=== PATIENT | female | born 1955 | race Caucasian/White ===

== ENCOUNTER 2020-02-08 11:00 | Outpatient (RCR) | payer MEDICARE, SELFPAY | END 2020-02-08 13:17 | disposition home or self-care (01) | LOC: HO.PTCHIC 11:00 | PROVIDERS: PCP Internal Medicine | DX: Z47.1 Aftercare following joint replacement surgery (principal); Z96.652 Presence of left artificial knee joint | CPT/HCPCS: 97110; 97112 ==

== ENCOUNTER 2020-06-05 11:46 | Outpatient (REF) | payer MEDICARE, SELFPAY ==
[2020-06-05 14:15] LABS: Alanine Aminotransferase 25 U/L (0-31); Albumin Level 4.5 g/dL (3.5-5.0); Alkaline Phosphatase 99 U/L (39-117); Anion Gap 16 (12-20); Aspartate Amino Transferase 28 U/L (5-31); Bilirubin Direct 0.2 mg/dL (0.0-0.5); Bilirubin Total 0.6 mg/dL (0.0-1.0); Blood Urea Nitrogen 31 mg/dL (9-16); Calcium 9.8 mg/dL (8.4-10.2); Carbon Dioxide 29 mmol/L (22-29); Chloride 99 mmol/L (96-108); Estimated Glomerular Filt Rate 39; Glucose Random 109 mg/dL (60-115); Potassium 4.4 mmol/L (3.3-5.1); Sodium 140 mmol/L (135-145); Total Protein 7.5 g/dL (6.5-8.0)
== END 2020-06-05 11:47 | disposition home or self-care (01) ==
LOC: HO.HMGCLDS 11:46
PROVIDERS: PCP Internal Medicine; Visit Provider Internal Medicine
DX: B35.3 Tinea pedis (principal); E78.9 Disorder of lipoprotein metabolism, unspecified; F33.9 Major depressive disorder, recurrent, unspecified; I10 Essential (primary) hypertension; N32.9 Bladder disorder, unspecified; Z91.09 Other allergy status, other than to drugs and biological substances
CPT/HCPCS: 36415; 80048; 80076

== ENCOUNTER 2021-02-14 15:20 | Outpatient (REF) | payer MEDICARE, SELFPAY ==
--- NOTE | ~2021-02-14 | XR_ITS ---
EXAMINATION: XR RIBS, RIGHT CLINICAL INFORMATION: Chest pain. COMPARISON: Chest radiograph and left hemithoracic rib series done on 09/30/2006. TECHNIQUE: 3 views of the right ribs were obtained. FINDINGS: Lungs are clear. No consolidation, pneumothorax, or pleural effusion. The cardiomediastinal silhouette and pulmonary vasculature are normal. Note is made of presence of a small sliding hiatal hernia. Postsurgical changes are noted within the right axilla. Mild diffuse osteopenia. Osseous structures are unremarkable. Ribs are intact. No fractures are identified. XR/XR ribs RT min 3V w CXR1V IMPRESSION: No radiographic evidence of any displaced right hemithoracic rib fracture or hemopneumothorax or lung contusion is seen. Mild diffuse osteopenia. Postsurgical changes within the right axilla.
[2021-02-14 16:26] LABS: MANUAL DIFF FLAG NO
[2021-02-14 16:36] LABS: Basophils Percent Auto 0.4 % (0-2); Eosinophils Absolute Auto 0.1 X10*3/uL (0.0-0.4); Hematocrit 36.9 % (37-47); Imm Gran Abs Auto 0.04 X10*3/uL (0.00-0.03); Imm Gran Pct Auto 0.5 % (0.0-0.4); Lymphocytes Absolute Auto 1.9 X10*3/uL (1.2-4.9); Lymphocytes Percent Auto 23.6 % (20-40); Mean Corpuscular HGB Conc 32.5 g/dl (31.0-35.0); Mean Corpuscular Hemoglobin 32.9 pg (27.0-33.0); Mean Corpuscular Volume 101.1 fL (80-98); Mean Platelet Volume 10.9 fL (9.4-12.3); Monocytes Absolute Auto 0.7 X10*3/uL (0.1-1.2); Monocytes Percent Auto 8.3 % (2-11); Neutrophils Absolute Auto 5.3 X10*3/uL (2.0-8.3); Neutrophils Percent Auto 66.2 % (45-73); Platelet Count 333 X10*3/uL (160-400); Red Blood Count 3.65 X10*6/uL (4.20-5.50); Red Cell Distribution Width 13.9 % (11.0-16.0)
[2021-02-14 16:53] LABS: Alanine Aminotransferase 22 U/L (0-31); Albumin Level 4.2 g/dL (3.5-5.0); Alkaline Phosphatase 120 U/L (39-117); Anion Gap 15 (12-20); Aspartate Amino Transferase 29 U/L (5-31); Bilirubin Total 0.5 mg/dL (0.0-1.0); Blood Urea Nitrogen 14 mg/dL (9-16); Calcium 9.4 mg/dL (8.4-10.2); Carbon Dioxide 28 mmol/L (22-29); Chloride 103 mmol/L (96-108); Estimated Glomerular Filt Rate 32; Glucose Random 120 mg/dL (60-115); Potassium 4.2 mmol/L (3.3-5.1); Sodium 142 mmol/L (135-145)
== END 2021-02-14 15:21 | disposition home or self-care (01) ==
LOC: HO.HMGCLDS 15:20
PROVIDERS: PCP Internal Medicine; Visit Provider Internal Medicine
DX: R07.89 Other chest pain (principal); E78.9 Disorder of lipoprotein metabolism, unspecified; F33.9 Major depressive disorder, recurrent, unspecified; I10 Essential (primary) hypertension; K21.9 Gastro-esophageal reflux disease without esophagitis
CPT/HCPCS: 36415; 71101; 80053; 85025

== ENCOUNTER 2021-03-26 14:36 | Outpatient (REF) | payer MEDICARE, SELFPAY ==
[2021-03-26 16:34] LABS: Anion Gap 15 (12-20); Blood Urea Nitrogen 18 mg/dL (9-16); Carbon Dioxide 29 mmol/L (22-29); Chloride 102 mmol/L (96-108); Estimated Glomerular Filt Rate 40; Potassium 4.5 mmol/L (3.3-5.1); Sodium 141 mmol/L (135-145)
== END 2021-03-26 14:37 | disposition home or self-care (01) ==
LOC: HO.HMGCLDS 14:36
PROVIDERS: PCP Internal Medicine; Visit Provider Internal Medicine
DX: R74.8 Abnormal levels of other serum enzymes (principal)
CPT/HCPCS: 36415; 80051; 82565; 84520

== ENCOUNTER 2021-09-06 13:15 | Outpatient (REF) | payer MEDICARE, SELFPAY ==
[2021-09-06 14:27] LABS: Alanine Aminotransferase 25 U/L (0-31); Albumin Level 4.3 g/dL (3.5-5.0); Alkaline Phosphatase 109 U/L (39-117); Anion Gap 12 (12-20); Aspartate Amino Transferase 29 U/L (5-31); Bilirubin Total 0.6 mg/dL (0.0-1.0); Blood Urea Nitrogen 22 mg/dL (9-16); Calcium 9.8 mg/dL (8.4-10.2); Carbon Dioxide 27 mmol/L (22-29); Chloride 106 mmol/L (96-108); Cholesterol 234 mg/dL; Estimated Glomerular Filt Rate 43; Glucose Fasting 94 mg/dL (60-99); HDL Cholesterol 88 mg/dL; LDL Cholesterol Calculated 131 mg/dl; Potassium 4.4 mmol/L (3.3-5.1); Sodium 141 mmol/L (135-145); Total Protein 7.3 g/dL (6.5-8.0); Triglycerides 78 mg/dL
== END 2021-09-06 13:16 | disposition home or self-care (01) ==
LOC: HO.HMGCLDS 13:15
PROVIDERS: PCP Internal Medicine; Visit Provider Internal Medicine
DX: E78.9 Disorder of lipoprotein metabolism, unspecified (principal); I10 Essential (primary) hypertension
CPT/HCPCS: 36415; 80053; 80061

== ENCOUNTER 2022-03-22 12:32 | Outpatient (REF) | payer MEDICARE, SELFPAY ==
[2022-03-22 14:07] LABS: MANUAL DIFF FLAG NO
[2022-03-22 14:15] LABS: Basophils Percent Auto 0.4 % (0-2); Eosinophils Absolute Auto 0.1 X10*3/uL (0.0-0.4); Eosinophils Percent Auto 0.9 % (0-4); Hematocrit 41.3 % (37.0-47.0); Imm Gran Abs Auto 0.02 X10*3/uL (0.00-0.03); Imm Gran Pct Auto 0.3 % (0.0-0.4); Mean Corpuscular HGB Conc 33.9 g/dl (31.0-35.0); Mean Corpuscular Hemoglobin 32.7 pg (27.0-33.0); Mean Corpuscular Volume 96.5 fL (80.0-98.0); Mean Platelet Volume 10.2 fL (9.4-12.3); Monocytes Absolute Auto 0.5 X10*3/uL (0.1-1.2); Monocytes Percent Auto 7.7 % (2-11); Neutrophils Absolute Auto 4.2 x10*3/uL (2.0-8.3); Neutrophils Percent Auto 61.7 % (45-73); Platelet Count 343 X10*3/uL (160-400); Red Blood Count 4.28 X10*6/uL (4.20-5.50); Red Cell Distribution Width 13.4 % (11.0-16.0); White Blood Count 6.8 X10*3/uL (4.8-10.8)
[2022-03-22 14:45] LABS: Alanine Aminotransferase 24 U/L (0-31); Albumin Level 4.5 g/dL (3.5-5.0); Alkaline Phosphatase 97 U/L (39-117); Anion Gap 13 (12-20); Aspartate Amino Transferase 33 U/L (5-31); Bilirubin Total 0.5 mg/dL (0.0-1.0); Blood Urea Nitrogen 27 mg/dL (9-16); Calcium 9.9 mg/dL (8.4-10.2); Carbon Dioxide 29 mmol/L (22-29); Chloride 99 mmol/L (96-108); Estimated Glomerular Filt Rate 47; Glucose Random 107 mg/dL (60-115); Potassium 4.6 mmol/L (3.3-5.1); Sodium 136 mmol/L (135-145); Total Protein 7.4 g/dL (6.5-8.0)
[2022-03-23 18:53] LABS: LDL Cholesterol Direct 161 mg/dL (<100)
== END 2022-03-22 12:33 | disposition home or self-care (01) ==
LOC: HO.HMGCLDS 12:32
PROVIDERS: PCP Internal Medicine; Visit Provider Internal Medicine
DX: I10 Essential (primary) hypertension (principal); K21.9 Gastro-esophageal reflux disease without esophagitis; E78.9 Disorder of lipoprotein metabolism, unspecified; F33.41 Major depressive disorder, recurrent, in partial remission; N32.9 Bladder disorder, unspecified; Z91.09 Other allergy status, other than to drugs and biological substances
CPT/HCPCS: 36415; 80053; 83721; 85025

== ENCOUNTER 2022-12-02 13:24 | Outpatient (REF) | payer MEDICARE, SELFPAY ==
[2022-12-02 16:14] LABS: MANUAL DIFF FLAG NO
[2022-12-02 16:15] LABS: Basophils Percent Auto 0.6 % (0-2); Eosinophils Absolute Auto 0.1 X10*3/uL (0.0-0.4); Hematocrit 41.1 % (37.0-47.0); Hemoglobin 13.9 g/dl (12.0-16.0); Imm Gran Abs Auto 0.02 X10*3/uL (0.00-0.03); Imm Gran Pct Auto 0.3 % (0.0-0.4); Lymphocytes Absolute Auto 2.7 X10*3/uL (1.2-4.9); Lymphocytes Percent Auto 37.2 % (20-40); Mean Corpuscular HGB Conc 33.8 g/dl (31.0-35.0); Mean Corpuscular Hemoglobin 32.3 pg (27.0-33.0); Mean Corpuscular Volume 95.6 fL (80.0-98.0); Mean Platelet Volume 10.3 fL (9.4-12.3); Monocytes Absolute Auto 0.6 X10*3/uL (0.1-1.2); Monocytes Percent Auto 8.4 % (2-11); Neutrophils Absolute Auto 3.8 x10*3/uL (2.0-8.3); Neutrophils Percent Auto 52.5 % (45-73); Platelet Count 344 X10*3/uL (160-400); Red Cell Distribution Width 13.9 % (11.0-16.0); White Blood Count 7.2 X10*3/uL (4.8-10.8)
[2022-12-03 01:45] LABS: Alanine Aminotransferase 20 U/L (0-31); Albumin Level 4.3 g/dL (3.5-5.0); Alkaline Phosphatase 108 U/L (39-117); Anion Gap 14 (12-20); Aspartate Amino Transferase 28 U/L (5-31); Bilirubin Total 0.4 mg/dL (0.0-1.0); Blood Urea Nitrogen 14 mg/dL (9-16); Calcium 9.6 mg/dL (8.4-10.2); Carbon Dioxide 27 mmol/L (22-29); Chloride 106 mmol/L (96-108); Cholesterol 241 mg/dL; Estimated Glomerular Filt Rate 46; Glucose Fasting 97 mg/dL (60-99); HDL Cholesterol 83 mg/dL; LDL Cholesterol Calculated 134 mg/dl; Potassium 3.9 mmol/L (3.3-5.1); Sodium 143 mmol/L (135-145); Total Protein 7.6 g/dL (6.5-8.0); Triglycerides 122 mg/dL
== END 2022-12-02 13:25 | disposition home or self-care (01) ==
LOC: HO.HMGCLDS 13:24
PROVIDERS: PCP Internal Medicine; Visit Provider Internal Medicine
DX: E78.9 Disorder of lipoprotein metabolism, unspecified (principal); F33.9 Major depressive disorder, recurrent, unspecified; I10 Essential (primary) hypertension; K21.9 Gastro-esophageal reflux disease without esophagitis; N32.9 Bladder disorder, unspecified; Z91.09 Other allergy status, other than to drugs and biological substances
CPT/HCPCS: 36415; 80053; 80061; 85025

== ENCOUNTER 2022-12-10 12:59 | Outpatient (AMB) | payer BC, SELFPAY ==
[2022-12-10 13:02] VITALS: BP 126/74; PULSE 81; O2SAT 96; BMI 29.6
--- NOTE | 2022-12-10 13:02 | MHC.PC.OV ---
Vital Signs 12/10/22 13:02 Height 5 ft 2 in Weight 162 lb BMI 29.6 BP 126/74 Blood Pressure Location Lt brachial Position Sitting Pulse 81 Pulse Source Pulse Oximeter Pulse Oximetry (%) 96 Oxygen Delivery Method Room Air Intake Visit Reasons: 4m follow up Intake Note: Pt is here today for 4 months follow up visit. Allergies Sulfa (Sulfonamide Antibiotics) [Sulfa (Sulfonamides)] Allergy (Mild, Verified 12/10/22 13:04) FLUSHING/RASH lisinopril Adverse Reaction (Unknown, Verified 12/10/22 13:04) cough Tobacco use date assessed: 12/10/22 Fall risk assessment: 1 Fall in past year Last assessed Fall Risk: 12/10/22 Dental Screening Dental Screen Date: 12/10/22 Did you have a dental visit in the last 12 months?: No Did you have a dental problem in the last 6 months where you did not have access to dental care?: No Was dental information given to patient?: Patient declined HPI 4m follow up HPI Details Patient is 67-year-old female came in today for her regular follow-up visit Patient tripped and fell at home 1 month ago on her right shoulder Since then right shoulder has been painful and she is having difficulty lifting it. I have ordered x-ray of her shoulder she will be seeing orthopedic for further evaluation. Patient is taking Tylenol which is helping her she is also using local ice which helps Labs done recently reviewed with the patient Hypertension: Patient is taking amlodipine 10 mg, atenolol 100 mg blood pressure is well controlled today patient is tolerating medication no side effects Lipid disorder: Continue simvastatin 5 mg patient is tolerating medication Patient is on oxybutynin 10 mg daily for hyperactive bladder she is doing well tolerating medication Allergies are stable with Zyrtec and Flonase nasal spray. Dyspepsia stable with pantoprazole refill sent. Depression: Continue Wellbutrin refill sent Patient has seen [facility] vascular Dr. Anastasiia Carvalho had procedure done for varicosities and is doing very well Patient have an appointment in March [facility] Medical History Bladder disorder Chronic GERD Depression, major, recurrent Environmental allergies History of breast cancer Hypertension, essential Lipid disorder Osteoarthritis of knees, bilateral Vitamin D deficiency Surgical History No pertinent past surgical history Social History Housing: House Patient Tobacco Use Status: Former Tobacco user Quit Date: 2019 Tobacco use type: Cigarette Years Smoked: 50 years e-Cigarette/Vaping Use: Never Used Current occupational status: retired Cognitive needs: No Hearing needs: No Vision needs: Yes Questionnaire PHQ-9 Over the last 2 weeks, how often have you been bothered by any of the following problems? 1. Little interest or pleasure in doing things: not at all 2. Feeling down, depressed, or hopeless: not at all 3. Trouble falling or staying asleep, or sleeping too much: several days 4. Feeling tired or having little energy: more than half the days 5. Poor appetite or overeating: several days 6. Feeling bad about yourself - or that you are a failure or have let yourself or your family down: not at all 7. Trouble concentrating on things, such as reading the newspaper or watching television: several days 8. Moving or speaking so slowly that other people could have noticed. Or the opposite - being so fidgety or restless that you have been moving around a lot more than usual: not at all 9. Thoughts that you would be better off or of hurting yourself in some way: not at all Total score: 5 Depression Screening Interpretation: Negative 71396 - PHQ-9 Billing: Yes Source: Developed by Drs. Kristofer Christopher, Yoko Ricci, Kanu Cummins and colleagues, with an educational wes from [employer]. Thrive Questionnaire Date Thrive assessed: 12/10/22 I am a: Patient What is your living situation today?: I have a steady place to live Within the past 12 months, did the food you bought not last and you didn't have the money to get more?: Never true Within the past 12 months, did you worry whether your food would run out before you got money to buy more?: Never true Do you have trouble paying for medicines?: No Do you have trouble getting transportation to medical appointments?: No Do you have trouble paying your heating and electricity bill?: No Do you have trouble taking care of your child, family member or friend?: No Do you have trouble with day-to-day activities such as bathing, preparing meals, shopping, managing finances, etc.?: No Are you currently unemployed and looking for a job?: No Are you interested in more education?: No MAUREEN-7 AMB Questionnaire MAUREEN-7 Date MAUREEN - 7 assessed: 12/10/22 Feeling nervous, anxious, or on edge: 1 = Several days Not being able to stop or control worryin = Several days Worrying too much about different things: 1 = Several days Trouble relaxin = More than half the days Being so restless that it is hard to sit still: 2 = More than half the days Becoming easily annoyed or irritable: 2 = More than half the days Feeling afraid as if something awful might happen: 0 = Not at all Total MAUREEN-7 score (0-4 normal; 5-9 mild; 10-14 moderate; 15-21 severe): 9 Source: Developed by Drs. Kristofer Christopher, Yoko Ricci, Kanu Cummins and colleagues, with an educational wes from [employer]. MAUREEN-7 Assessment Billing MAUREEN-7 Assessment Tool: MAUREEN-7 Assessment 77414 Review of Systems Const Denies chills and Denies fever(s) ENT Denies epistaxis and Denies nasal discharge Card Denies chest pain Resp Denies chest congestion, Denies cough and Denies hemoptysis GI Denies diarrhea and Denies nausea Skin/Breast Denies rash Neuro Reports no additional complaints Psych Reports no additional complaints Endo Reports no additional complaints Physical exam (Primary Care) Vital Signs: Last Vital Signs Pulse 81 12/10/22 13:02 BP 126/74 12/10/22 13:02 Pulse Ox 96 12/10/22 13:02 Oxygen Delivery Method Room Air 12/10/22 13:02 BMI result Body Mass Index 29.6 Tobacco/Smoking Status: Tobacco use Status Tobacco use date assessed 12/10/22 12/10/22 13:06 Patient Tobacco Use Status Former Tobacco user 12/10/22 13:06 Tobacco use type Cigarette 12/10/22 13:06 e-Cigarette/Vaping Use Never Used 12/10/22 13:06 PHQ-9: PHQ-9 Score PHQ-9: Total score 5 12/10/22 13:56 Depression Screening Interpretation: Negative Thrive Assessment: Date of Thrive Assessment Date Thrive assessed 12/10/22 12/10/22 13:56 Const General: cooperative, comfortable and no acute distress Orientation/consciousness: patient oriented x3 HENMT Head: Yes normocephalic Eyes General: appearance normal, both eyes and all related structures Neck Neck: Yes supple Resp Effort & Inspection: normal respiratory effort, no cough and no stridor Cardio Rhythm: regular rhythm Heart sounds: S1 normal heart sound present and S2 normal heart sound present Skin General skin exam: turgor normal Neuro General: patient oriented x3, tone normal and moves all extremities Extrem Shoulder/upper arm images: 1. Tender to palpation over rotator cuff, range of motion limited to 30 degrees only. Right lower extremity: no edema Left lower extremity: no edema Assessment and Plan Assessment & Plan (1) Right shoulder injury: Code(s): S49.91XA - Unspecified injury of right shoulder and upper arm, initial encounter (2) Fall: Code(s): W19.XXXA - Unspecified fall, initial encounter (3) Shoulder pain, right: Code(s): M25.511 - Pain in right shoulder (4) Chronic GERD: Code(s): K21.9 - Gastro-esophageal reflux disease without esophagitis (5) Depression, major, recurrent: Code(s): F33.9 - Major depressive disorder, recurrent, unspecified Qualifiers: Active/Remission status: in partial remission Qualified Code(s): F33.41 - Major depressive disorder, recurrent, in partial remission (6) Bladder disorder: Code(s): N32.9 - Bladder disorder, unspecified (7) Hypertension, essential: Code(s): I10 - Essential (primary) hypertension (8) Environmental allergies: Code(s): Z91.09 - Other allergy status, other than to drugs and biological substances (9) Lipid disorder: Code(s): E78.9 - Disorder of lipoprotein metabolism, unspecified Plan Patient is 67-year-old female came in today for her regular follow-up visit Patient tripped and fell at home 1 month ago on her right shoulder Since then right shoulder has been painful and she is having difficulty lifting it. I have ordered x-ray of her shoulder she will be seeing orthopedic for further evaluation. Patient is taking Tylenol which is helping her she is also using local ice which helps Labs done recently reviewed with the patient Hypertension: Patient is taking amlodipine 10 mg, atenolol 100 mg blood pressure is well controlled today patient is tolerating medication no side effects Lipid disorder: Continue simvastatin 5 mg patient is tolerating medication Patient is on oxybutynin 10 mg daily for hyperactive bladder she is doing well tolerating medication Allergies are stable with Zyrtec and Flonase nasal spray. Dyspepsia stable with pantoprazole refill sent. Depression: Continue Wellbutrin refill sent Patient has seen [facility] vascular Dr. Anastasiia Carvalho had procedure done for varicosities and is doing very well Patient have an appointment in March Orders: Orders XR shoulder RT min 2V Today M25.511 - Pain in right shoulder, S49.91XA - Unspecified injury of right shoulder and upper arm, initial encounter, W19.XXXA - Unspecified fall, initial encounter Referrals Orthopedics Referral M25.511 - Pain in right shoulder, S49.91XA - Unspecified injury of right shoulder and upper arm, initial encounter, W19.XXXA - Unspecified fall, initial encounter Coding Level of Care Code Est Pt Level 4 (89800) Diagnoses Right shoulder injury S49.91XA Fall W19.XXXA Shoulder pain, right M25.511 Chronic GERD K21.9 Depression, major, recurrent F33.41 Active/Remission status: in partial remission Bladder disorder N32.9 Hypertension, essential I10 Environmental allergies Z91.09 Lipid disorder E78.9 Additional Codes MAUREEN-7 Assessment Billing - MAUREEN-7 Assessment Tool: MAUREEN-7 Assessment [id number] ([id number])
== END 2022-12-10 14:19 | disposition home or self-care (01) ==
PROVIDERS: PCP Internal Medicine; Visit Provider Internal Medicine
DX: S49.91XA Unspecified injury of right shoulder and upper arm, initial encounter (principal); W19.XXXA Unspecified fall, initial encounter; K21.9 Gastro-esophageal reflux disease without esophagitis; F33.41 Major depressive disorder, recurrent, in partial remission; I10 Essential (primary) hypertension; Z91.09 Other allergy status, other than to drugs and biological substances; M25.511 Pain in right shoulder; N32.9 Bladder disorder, unspecified; E78.9 Disorder of lipoprotein metabolism, unspecified
CPT/HCPCS: 99214

== ENCOUNTER 2022-12-10 13:28 | Outpatient (REF) | payer MEDICARE, SELFPAY ==
--- NOTE | ~2022-12-10 | XR_ITS ---
EXAMINATION: XR SHOULDER, RIGHT CLINICAL INFORMATION: Unspecified injury of right shoulder and upper arm. COMPARISON: None available. TECHNIQUE: AP external rotation, Grashey, scapular Y, and axillary views of the right shoulder. FINDINGS: The bony structures are heterogeneous/osteopenic. There is a mildly displaced obliquely oriented fracture through the greater tuberosity. There is no dislocation. Soft tissues are unremarkable XR/XR shoulder RT min 2V IMPRESSION: Mildly displaced fracture through the greater tuberosity..
== END 2022-12-10 13:29 | disposition home or self-care (01) ==
LOC: HO.HMGCX 13:28
PROVIDERS: PCP Internal Medicine; Visit Provider Internal Medicine
DX: S49.91XA Unspecified injury of right shoulder and upper arm, initial encounter (principal); M25.511 Pain in right shoulder; W19.XXXA Unspecified fall, initial encounter; Y93.9 Activity, unspecified; Y92.9 Unspecified place or not applicable; Y99.9 Unspecified external cause status
CPT/HCPCS: 73030

== ENCOUNTER 2022-12-16 05:32 | Outpatient (REF) | payer MEDICARE, SELFPAY | END 2022-12-16 05:33 | disposition home or self-care (01) | LOC: HO.HOSX 05:32 | PROVIDERS: Visit Provider Physician Assistant | DX: S42.251A Displaced fracture of greater tuberosity of right humerus, initial encounter for closed fracture (principal) | CPT/HCPCS: 99202 ==

== ENCOUNTER 2022-12-16 14:27 | Outpatient (AMB) | payer BC, SELFPAY ==
[2022-12-16 14:41] VITALS: BMI 29.6
--- NOTE | 2022-12-16 14:41 | A.OFFVIS_ITS ---
Intake Vital Signs 12/16/22 14:41 Height 5 ft 2 in Weight 162 lb BMI 29.6 Intake Visit Reasons: FC- Mildly displaced fx greater tuberosity Intake Note: Right hand dominant female presents today for a new patient visit for an evaluation of her right arm. States approx 6 weeks ago she triped over a carpet in the middle of the night. States she landed on her right side. Report she felt instant pain. She thought her pain would get better but worsen instead. Seen at an urgent care 6 days ago where xrays and was placed in a sling. Currently she Monique numbness or tingling just increase pain with arm movement. Allergies Sulfa (Sulfonamide Antibiotics) [Sulfa (Sulfonamides)] Allergy (Mild, Verified 12/16/22 14:45) FLUSHING/RASH lisinopril Adverse Reaction (Unknown, Verified 12/16/22 14:45) cough HPI FC- Mildly displaced fx greater tuberosity HPI Details 67-year-old right hand dominant female who presents in the office today, as a new patient, for an evaluation of right shoulder pain. The patient was seen by Urgent Care on 12/10/2022 due to limited ROM of the right shoulder accompanied by pain status post a fall which occurred in end of 09/2022 after she tripped over her carpet in the middle of the night and hit a bunk bed. She was placed in a sling. She thought it was getting better but states the pain is getting worse. She denies numbness or tingling. Patient refused repeat x-rays while in the office today. 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 No ecchymosis, erythema, or edema. Forward flexion and abduction to 45 degrees. NVI. Office Procedures Fracture Care Fracture Billing Code: Fracture Billing Code Assessment & Plan Assessment & Plan (1) Fracture of greater tuberosity of right humerus: Code(s): S42.251A - Displaced fracture of greater tuberosity of right humerus, initial encounter for closed fracture Plan Ms. Scherer is a 67-year-old right hand dominant female who presents in the office today, as a new patient, for an evaluation of right shoulder pain. The patient was seen by Urgent Care on 12/10/2022 due to limited ROM of the right shoulder accompanied by pain status post a fall which occurred in end of 09/2022 after she tripped over her carpet in the middle of the night and hit a bunk bed. She was placed in a sling. She thought it was getting better but states the pain is getting worse. She denies numbness or tingling. Patient refused repeat x-rays while in the office today. I educated which motions for her avoid performing with the right shoulder until she has progressed with healing. I discussed the role of formal physical therapy to work on gentle ROM of the right shoulder. She has agreed to attend at this time. I discussed her returning in 4-6 weeks and she has requested 6 weeks. Follow up will be in 6 weeks with repeat x-rays, or sooner if needed. X-rays of the right shoulder, obtained on 12/10/2022, revealed: Mildly displaced fracture through the greater tuberosity. Orders: Orders XR shoulder RT min 2V 12/16/22 M25.519 - Pain in unspecified shoulder PT Evaluation and Treatment Today S42.251A - Displaced fracture of greater tuberosity of right humerus, initial encounter for closed fracture Patient Instructions: Scribed for Joslyn Malloy PA-C by [facility] or medical, on 12/16/2022 at 2:30 pm, EST. Coding Level of Care Code New Pt Level 4 (33803) Diagnoses Fracture of greater tuberosity of right humerus S42.251A CPT Codes Fracture Care - Fracture Billing Code: Fracture Billing Code ([id number])
== END 2022-12-16 15:18 | disposition home or self-care (01) ==
PROVIDERS: PCP Internal Medicine; Visit Provider Physician Assistant
DX: S42.251A Displaced fracture of greater tuberosity of right humerus, initial encounter for closed fracture (principal)
CPT/HCPCS: 99204

== ENCOUNTER 2023-01-13 13:00 | Outpatient (RCR) | payer MEDICARE, SELFPAY ==
--- NOTE | 2022-12-20 09:37 | MHC.PT.EP ---
[facility] [place] Office [place] Office [place] Office [address] Jeffy Blanco [address] [phone] F: [phone] F: [phone] F: [phone] F: [phone] Physical Therapy Plan of Care Date of Evaluation: Date of Surgery: Diagnosis: This is a 67 yo female presenting to skilled PT with a script for fracture of greater tuberosity of R humerus. Assessment: This is a 67 yo female presenting to skilled PT with a script for fracture of greater tuberosity of R humerus. Patient reports a fall about a month ago when she accidently caught her foot and fell into her bed. She went to her PCP last week and had an x-ray, XR/XR shoulder RT min 2V IMPRESSION: Mildly displaced fracture through the greater tuberosity. She has also seen [facility] ortho who referred her to PT and provided a sling (no longer wearing this, follows up with them in 6wks). Her pain today is located GHJ into mid humerus, described as achy and sharp (denies numbness or tingling). Pain increases with typing, UB and LB ADLs, housework/dishes. Assessment reveals pain that ranges from up to a 6/10 at the worst. Patient demos decreased shoulder, elbow and cervical ROM, strength of shoulder and elbow, TTP at shoulder and elbow joint lines and surrounding soft tissues and impaired posture with forward head, increased thoracic kyphosis and rounded shoulders. Based on functional limitations, impaired QOL and pain tolerance patient is a good candidate for skilled PT 2x/wk for 6 wks. Frequency and Duration: The patient will be seen 2x/wk for 6wks Short Term Goals: (in 2 wks) Demo I with HEP Improve shoulder AROM by at least 10 degs Demo proper scapular recruitment with appropriate shoulder strengthening exercises when ready and pain free Certified Adapted Physical Educator Goals: (in 6 wks) Improve shoulder nonpainful AROM to almost near equal B Demo at least 1 grade improvement in MMT for shoulder Improve SPADI by at least 10 points Improve overall functional QOL by at least 50% Treatment Plan: Modalities to reduce pain, spasms and effusion. Manual therapy to restore motion and function. Therapeutic exercise to improve strength and flexibility. Neuromuscular re-education for posture and balance. Therapeutic activities to return to functional activities of daily living. Electronically signed by: Nano Madrigal PT Please sign and return to therapist. Thank you for your referral.
--- NOTE | 2023-02-12 09:25 | MHC.PT.DC ---
[facility] [place] Office [place] [facility] [place] Office [address] Jeffy Blanco [address] [phone] F: [phone] F: [phone] F: [phone] F: [phone] Physical Therapy Discharge Report Diagnosis: This is a 67 yo female presenting to skilled PT with a script for fracture of greater tuberosity of R humerus. Date of Surgery: Date of Evaluation: 12/20/22 Date of Discharge: 02/12/23 Treatments to Date: 2 Cancellations to Date: 0 No Shows to Date: 0 Discharge Status: Achieved Goals Improved Function Independent with HEP Patient Elected to Stop Discharge Summary: Patient is doing well on her own. Ready to progress her HEP and feels like she can continue on her own. Added in band strengthening and functional movements with arm. She demos improved ROM, pain and functional use since eval. I kept her chart open and DC'd after 30 days. She did not call for further assistance. Electronically signed by: Nano Madrigal PT Please sign and return to therapist. Thank you for your referral.
== END 2023-02-12 09:26 | disposition home or self-care (01) ==
LOC: HO.PTCHIC 13:00
PROVIDERS: PCP Internal Medicine; Visit Provider Physician Assistant
DX: S42.251D Displaced fracture of greater tuberosity of right humerus, subsequent encounter for fracture with routine healing (principal)
CPT/HCPCS: 97110; 97162

== ENCOUNTER 2023-01-24 07:59 | Outpatient (REF) | payer MEDICARE, SELFPAY | END 2023-01-24 08:00 | disposition home or self-care (01) | LOC: HO.HOSX 07:59 | PROVIDERS: Visit Provider Physician Assistant | DX: Z13.89 Encounter for screening for other disorder (principal) ==

== ENCOUNTER 2023-03-26 12:58 | Outpatient (AMB) | payer MEDICARE, SELFPAY ==
--- NOTE | 2023-03-26 12:59 | A.OFFPC_ITS ---
Vital Signs 3 03/26/23 13:01 Height 5 ft 2 in Weight 163 lb BMI 29.8 BP 120/70 Blood Pressure Location Rt brachial Position Sitting Pulse 74 Pulse Source Pulse Oximeter Pulse Oximetry (%) 98 Oxygen Delivery Method Room Air Intake Visit Reasons: Annual PE Allergies Sulfa (Sulfonamide Antibiotics) [Sulfa (Sulfonamides)] Allergy (Mild, Verified 03/26/23 13:00) FLUSHING/RASH lisinopril Adverse Reaction (Unknown, Verified 03/26/23 13:00) cough Medication List - Last Reconciled 03/26/23 by Cyndi Vera MD adjuvant AS01B (PF)vial 1 of 2 (Shingrix Adjuvant Component (PF) intramuscular suspension) 5 mL IM .qd 30 days amlodipine 10 mg PO DAILY 90 days atenolol 100 mg PO DAILY 90 days bupropion HCl (Wellbutrin XL) 300 mg PO QAM 90 days cetirizine (Zyrtec) 10 mg PO ONCE 90 days fluticasone propionate 50 mcg/actuation 1 spray intranasal DAILY 30 days ketoconazole 2% 1 appl topical DAILY 3 days oxybutynin chloride ER 10 mg PO DAILY 90 days pantoprazole 40 mg PO DAILY 90 days pneumoc 13-giselle conj-dip cr(PF) (Prevnar 13 (PF)) 0.5 mL IM ONCE 30 days simvastatin 5 mg PO BEDTIME 90 days Tobacco use date assessed: 03/26/23 Fall risk assessment: No Falls in past year Last assessed Fall Risk: 03/26/23 Dental Screening Dental Screen Date: 03/26/23 Did you have a dental visit in the last 12 months?: No Did you have a dental problem in the last 6 months where you did not have access to dental care?: No Was dental information given to patient?: Patient declined HPI Annual PE 2 HPI0 Details Patient is 67-year-old female came in today for physical examination Patient had colonoscopy July of last year at [facility] She has OBGYN, patient says that she will call and book appointment herself for breast exam and Pap smear She will also get order for mammogram and bone density through them Medication list reviewed Lab order placed to be done before next visit in 4 months Three weeks ago patient had developed rash left side lower rib area which she has been treating herself with local ointment It seems as if this is a shingles rash which is healing now On examination patient has limited range of motion in her right shoulder, unable to lift above head which is a chronic problem started after the injury REPLACED BY [facility] Medical History Osteoarthritis of knees, bilateral Bladder disorder Depression, major, recurrent Lipid disorder Vitamin D deficiency Environmental allergies History of breast cancer Hypertension, essential Chronic GERD Surgical History No pertinent past surgical history Social History Housing: House Patient Tobacco Use Status: Former Tobacco user Quit Date: 2019 Tobacco use type: Cigarette Years Smoked: 50 years e-Cigarette/Vaping Use: Never Used Current occupational status: retired 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 How often do you have a drink containing alcohol?: Monthly or less 2. How many drinks containing alcohol do you have on a typical day when you are drinking?: 1 or 2 3. How often do you have six or more drinks on one occasion?: Never Total Score: 1 MAUREEN-7 AMB Questionnaire MAUREEN-7 Date MAUREEN - 7 assessed: 12/10/22 Source: Developed by Drs. Kristofer Christopher, Yoko Ricci, Kanu Cummins and colleagues, with an educational wes from [employer]. Review of Systems Const Denies chills, Denies fever(s) and Denies headache(s) Eyes Denies blurry vision ENT Denies headache(s), Denies nasal discharge, Denies nasal obstruction, Denies odynophagia and Denies sinus pain Card Denies chest pain at rest and Denies chest pain with activity Resp Denies cough and Denies hemoptysis GI Denies diarrhea, Denies odynophagia, Denies vomiting and Denies hematemesis Reports as per HPI Musc Denies abnormal gait Skin/Breast Reports as per HPI Neuro Denies Neuro-related abnormal movements, Denies Abnormal speech present, Denies abnormal gait, Denies headache(s) and Denies Sensory deficit (Neuro) Psych Denies mood swings and Denies paranoia Endo Reports as per HPI Smith/Lymph Reports as per HPI Aller/Immun Reports as per HPI Physical exam (Primary Care) Vital Signs: Last Vital Signs Pulse 74 03/26/23 13:01 BP 120/70 03/26/23 13:01 Pulse Ox 98 03/26/23 13:01 Oxygen Delivery Method Room Air 03/26/23 13:01 BMI result Body Mass Index 29.8 Tobacco/Smoking Status: Tobacco use Status Tobacco use date assessed 03/26/23 03/26/23 13:02 Patient Tobacco Use Status Former Tobacco user 03/26/23 13:02 Tobacco use type Cigarette 03/26/23 13:02 e-Cigarette/Vaping Use Never Used 03/26/23 13:02 Thrive Assessment: Date of Thrive Assessment Date Thrive assessed 12/10/22 03/26/23 13:02 Const General: cooperative, comfortable and no acute distress Orientation/consciousness: patient oriented x3 HENMT Head: Yes normocephalic and Yes atraumatic Eyes General: appearance normal, both eyes and all related structures Pupils: Equal, round and reactive pupils present EOM: EOMs intact bilaterally Neck Neck: Yes supple and No lymphadenopathy Thyroid: Thyroid normal Lymphatic: no lymphadenopathy noted Chest Chest/axillae images: 2 1. Papular erythematous rash healing Resp Effort & Inspection: normal respiratory effort and able to speak in complete sentences Auscultation: clear to auscultation bilaterally Cardio Heart sounds: S1 normal heart sound present and S2 normal heart sound present GI Palpation (GI): Soft to palpation and nontender Auscultation: normal bowel sounds General: Yes no CVA tenderness Back/Spine/Pelvis Back: no CVA tenderness Skin General skin exam: elasticity normal and turgor normal Neuro General: patient oriented x3 and gait normal Cranial nerves: Yes Equal, round and reactive pupils present Speech: No Abnormal speech present Sensory Exam: No Sensory deficit (Neuro) Coordination: tandem gait normal and Romberg test negative Extrem General: Yes normal exam except as noted and No edema Assessment and Plan Assessment & Plan (1) Encounter for general adult medical examination with abnormal findings: Code(s): Z00.01 - Encounter for general adult medical examination with abnormal findings (2) Shoulder pain, right: Code(s): M25.511 - Pain in right shoulder Qualifiers: Chronicity: chronic Qualified Code(s): M25.511 - Pain in right shoulder; G89.29 - Other chronic pain (3) Depression, major, recurrent: Code(s): F33.9 - Major depressive disorder, recurrent, unspecified Qualifiers: Active/Remission status: in full remission Qualified Code(s): F33.42 - Major depressive disorder, recurrent, in full remission (4) Lipid disorder: Code(s): E78.9 - Disorder of lipoprotein metabolism, unspecified (5) Environmental allergies: Code(s): Z91.09 - Other allergy status, other than to drugs and biological substances (6) Hypertension, essential: Code(s): I10 - Essential (primary) hypertension (7) Chronic GERD: Code(s): K21.9 - Gastro-esophageal reflux disease without esophagitis (8) Herpes zoster: Code(s): B02.9 - Zoster without complications Qualifiers: Herpes zoster complications: without complications Qualified Code(s): B 02.9 - Zoster without complications Plan Patient is 67-year-old female came in today for physical examination Patient had colonoscopy July of last year at [facility] She has OBGYN, patient says that she will call and book appointment herself for breast exam and Pap smear She will also get order for mammogram and bone density through them Medication list reviewed Lab order placed to be done before next visit in 4 months Three weeks ago patient had developed rash left side lower rib area which she has been treating herself with local ointment It seems as if this is a shingles rash which is healing now Orders: Orders 2 Complete Blood Count Auto Diff 3 Months E78.9 - Disorder of lipoprotein metabolism, unspecified, I10 - Essential (primary) hypertension, Z91.09 - Other allergy status, other than to drugs and biological substances Comprehensive [place]. Panel Fast 3 Months E78.9 - Disorder of lipoprotein metabolism, unspecified, I10 - Essential (primary) hypertension, Z91.09 - Other allergy status, other than to drugs and biological substances Lipid Panel 3 Months E78.9 - Disorder of lipoprotein metabolism, unspecified, I10 - Essential (primary) hypertension, Z91.09 - Other allergy status, other than to drugs and biological substances Coding Level of Care Code Est Pt Prev Care >65y(79150) Diagnoses Encounter for general adult medical examination with abnormal findings Z00.01 Chronic right shoulder pain M25.511; G89.29 Chronicity: chronic Recurrent major depressive disorder, in full remission F33.42 Active/Remission status: in full remission Lipid disorder E78.9 Environmental allergies Z91.09 Hypertension, essential I10 Chronic GERD K21.9 Herpes zoster without complication B02.9 Herpes zoster complications: without complications
[2023-03-26 13:01] VITALS: BP 120/70; PULSE 74; O2SAT 98; BMI 29.8
== END 2023-03-26 13:25 | disposition home or self-care (01) ==
PROVIDERS: PCP Internal Medicine; Visit Provider Internal Medicine
DX: Z00.00 Encounter for general adult medical examination without abnormal findings (principal); F33.42 Major depressive disorder, recurrent, in full remission; M25.511 Pain in right shoulder; G89.29 Other chronic pain; E78.9 Disorder of lipoprotein metabolism, unspecified; Z91.09 Other allergy status, other than to drugs and biological substances; I10 Essential (primary) hypertension; K21.9 Gastro-esophageal reflux disease without esophagitis; B02.9 Zoster without complications
CPT/HCPCS: 99397

== ENCOUNTER 2023-07-23 11:03 | Outpatient (REF) | payer MEDICARE, SELFPAY ==
[2023-07-23 13:29] LABS: MANUAL DIFF FLAG NO
[2023-07-23 13:41] LABS: Basophils Percent Auto 0.6 % (0-2); Eosinophils Absolute Auto 0.1 X10*3/uL (0.0-0.4); Eosinophils Percent Auto 1.6 % (0-4); Hematocrit 41.8 % (37.0-47.0); Hemoglobin 13.6 g/dl (12.0-16.0); Imm Gran Abs Auto 0.02 X10*3/uL (0.00-0.03); Imm Gran Pct Auto 0.3 % (0.0-0.4); Lymphocytes Absolute Auto 1.7 X10*3/uL (1.2-4.9); Lymphocytes Percent Auto 27.4 % (20-40); Mean Corpuscular HGB Conc 32.5 g/dl (31.0-35.0); Mean Corpuscular Hemoglobin 31.9 pg (27.0-33.0); Mean Corpuscular Volume 97.9 fL (80.0-98.0); Mean Platelet Volume 10.3 fL (9.4-12.3); Monocytes Absolute Auto 0.5 X10*3/uL (0.1-1.2); Monocytes Percent Auto 7.8 % (2-11); Neutrophils Absolute Auto 3.9 x10*3/uL (2.0-8.3); Neutrophils Percent Auto 62.3 % (45-73); Platelet Count 334 X10*3/uL (160-400); Red Blood Count 4.27 X10*6/uL (4.20-5.50); Red Cell Distribution Width 13.7 % (11.0-16.0); White Blood Count 6.3 X10*3/uL (4.8-10.8)
[2023-07-23 14:16] LABS: Alanine Aminotransferase 24 U/L (0-31); Albumin Level 4.3 g/dL (3.5-5.0); Alkaline Phosphatase 114 U/L (39-117); Anion Gap 14 (12-20); Aspartate Amino Transferase 31 U/L (5-31); Bilirubin Total 0.5 mg/dL (0.0-1.0); Blood Urea Nitrogen 21 mg/dL (9-16); Calcium 9.8 mg/dL (8.4-10.2); Carbon Dioxide 29 mmol/L (22-29); Chloride 103 mmol/L (96-108); Cholesterol 250 mg/dL (<200); Estimated Glomerular Filt Rate 49; Glucose Fasting 94 mg/dL (60-99); HDL Cholesterol 93 mg/dL (>40); LDL Cholesterol Calculated 124 mg/dL (<100); Potassium 4.4 mmol/L (3.3-5.1); Sodium 142 mmol/L (135-145); Total Protein 7.9 g/dL (6.5-8.0); Triglycerides 167 mg/dL (<150)
== END 2023-07-23 11:04 | disposition home or self-care (01) ==
LOC: HO.HMGCLDS 11:03
PROVIDERS: PCP Internal Medicine; Visit Provider Internal Medicine
DX: I10 Essential (primary) hypertension (principal); E78.9 Disorder of lipoprotein metabolism, unspecified; Z91.09 Other allergy status, other than to drugs and biological substances
CPT/HCPCS: 36415; 80053; 80061; 85025

== ENCOUNTER 2023-07-30 12:42 | Outpatient (AMB) | payer MEDICARE, SELFPAY ==
[2023-07-30 12:43] VITALS: BP 120/66; PULSE 78; O2SAT 96; BMI 30.7
--- NOTE | 2023-07-30 12:43 | A.OFFPC_ITS ---
Vital Signs 07/30/23 12:43 Height 5 ft 2 in Weight 168 lb BMI 30.7 BP 120/66 Blood Pressure Location Lt brachial Position Sitting Pulse 78 Pulse Source Pulse Oximeter Pulse Oximetry (%) 96 Oxygen Delivery Method Room Air Intake Visit Reasons: 4 Month F/U Intake Note: Pt is here today for 4 months follow up visit. Allergies Sulfa (Sulfonamide Antibiotics) [Sulfa (Sulfonamides)] Allergy (Mild, Verified 07/30/23 12:44) FLUSHING/RASH lisinopril Adverse Reaction (Unknown, Verified 07/30/23 12:44) cough Medication List - Last Reconciled 07/30/23 by Cyndi Vera MD adjuvant AS01B (PF)vial 1 of 2 (Shingrix Adjuvant Component (PF) intramuscular suspension) 5 mL IM .qd 30 days amlodipine 10 mg PO DAILY 90 days atenolol 100 mg PO DAILY 90 days bupropion HCl XL (Wellbutrin XL) 300 mg PO QAM 90 days cetirizine (Zyrtec) 10 mg PO ONCE 90 days fluticasone propionate 50 mcg/actuation 1 spray intranasal DAILY 30 days ketoconazole 2% 1 appl topical DAILY 3 days multivitamin 1 tab PO DAILY oxybutynin chloride ER 10 mg PO DAILY 90 days pantoprazole 40 mg PO DAILY 90 days pneumoc 13-giselle conj-dip cr(PF) (Prevnar 13 (PF)) 0.5 mL IM ONCE 30 days simvastatin 5 mg PO BEDTIME 90 days Tobacco use date assessed: 07/30/23 Fall risk assessment: 1 Fall in past year Last assessed Fall Risk: 07/30/23 Dental Screening Dental Screen Date: 07/30/23 Did you have a dental visit in the last 12 months?: No Did you have a dental problem in the last 6 months where you did not have access to dental care?: Yes Was dental information given to patient?: Yes HPI 4 Month F/U HPI Details Patient is 67-year-old female came in today for her regular follow-up appointment Patient says that she feels she has developed irritable bowel syndrome As she continued to have diarrhea alternating with the regular bowel movements Currently she is taking probiotic which is helping and she has modified her diet She also take Imodium if she is going out the days went she is having predominantly diarrhea symptoms Hypertension: Patient is taking amlodipine 10 mg, atenolol 100 mg blood pre ssure is well controlled today patient is tolerating medication no side effects Lipid disorder: Continue simvastatin 5 mg patient is tolerating medication Patient is on oxybutynin 10 mg daily for hyperactive bladder she is doing well tolerating medication Allergies are stable with Zyrtec and Flonase nasal spray. Dyspepsia stable with pantoprazole refill sent. Depression: Continue Wellbutrin refill sent Patient has seen [facility] vascular Dr. Anastasiia Carvalho had procedure done for varicosities and is doing very well Labs done recently reviewed with the patient Follow-up 4 months [facility] Medical History Osteoarthritis of knees, bilateral Bladder disorder Depression, major, recurrent Lipid disorder Vitamin D deficiency Environmental allergies History of breast cancer Hypertension, essential Chronic GERD Surgical History No pertinent past surgical history Social History Housing: House Patient Tobacco Use Status: Former Tobacco user Quit Date: 2019 Tobacco use type: Cigarette Years Smoked: 50 years e-Cigarette/Vaping Use: Never Used service: No Current occupational status: retired 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 1. Little interest or pleasure in doing things: not at all 2. Feeling down, depressed, or hopeless: not at all 3. Trouble falling or staying asleep, or sleeping too much: several days 4. Feeling tired or having little energy: more than half the days 5. Poor appetite or overeating: several days 6. Feeling bad about yourself - or that you are a failure or have let yourself or your family down: not at all 7. Trouble concentrating on things, such as reading the newspaper or watching television: several days 8. Moving or speaking so slowly that other people could have noticed. Or the opposite - being so fidgety or restless that you have been moving around a lot more than usual: not at all 9. Thoughts that you would be better off or of hurting yourself in some way: not at all Total score: 5 Depression Screening Interpretation: Negative Depression Screening Done: Yes 72560 - PHQ-9 Billing: Yes Source: Developed by Drs. Kristofer Christopher, Yoko Ricci, Kanu Cummins and colleagues, with an educational wes from [employer]. Thrive Questionnaire Date Thrive assessed: 07/30/23 I am a: Patient What is your living situation today?: I have a steady place to live Within the past 12 months, did the food you bought not last and you didn't have the money to get more?: Never true Within the past 12 months, did you worry whether your food would run out before you got money to buy more?: Never true Do you have trouble paying for medicines?: No Do you have trouble getting transportation to medical appointments?: No Do you have trouble paying your heating and electricity bill?: No Do you have trouble taking care of your child, family member or friend?: No Do you have trouble with day-to-day activities such as bathing, preparing meals, shopping, managing finances, etc.?: No Are you currently unemployed and looking for a job?: No Are you interested in more education?: No Please select the resources that you would like help with: None Currently or been in a relationship where the following occur: no concerns reported THRIVE Score: 0 MAUREEN-7 AMB Questionnaire MAUREEN-7 Date MAUREEN - 7 assessed: 07/30/23 Feeling nervous, anxious, or on edge: 0 = Not at all Not being able to stop or control worryin = Not at all Worrying too much about different things: 0 = Not at all Trouble relaxin = Not at all Being so restless that it is hard to sit still: 0 = Not at all Becoming easily annoyed or irritable: 0 = Not at all Feeling afraid as if something awful might happen: 0 = Not at all Total MAUREEN-7 score (0-4 normal; 5-9 mild; 10-14 moderate; 15-21 severe): 0 Source: Developed by Drs. Kristofer Christopher, Kanu Pyle and colleagues, with an educational wes from [employer]. MAUREEN-7 Assessment Billing MAUREEN-7 Assessment Tool: MAUREEN-7 Assessment 35182 Review of Systems Const Denies chills and Denies fever(s) ENT Denies epistaxis and Denies nasal discharge Card Denies chest pain Resp Denies chest congestion, Denies cough and Denies hemoptysis GI Denies diarrhea and Denies nausea Skin/Breast Denies rash Neuro Reports no additional complaints Psych Reports no additional complaints Endo Reports no additional complaints Physical exam (Primary Care) Vital Signs: Last Vital Signs Pulse 78 07/30/23 12:43 BP 120/66 07/30/23 12:43 Pulse Ox 96 07/30/23 12:43 Oxygen Delivery Method Room Air 07/30/23 12:43 BMI result Body Mass Index 30.7 Tobacco/Smoking Status: Tobacco use Status Tobacco use date assessed 07/30/23 07/30/23 12:51 Patient Tobacco Use Status Former Tobacco user 07/30/23 12:51 Tobacco use type Cigarette 07/30/23 12:51 e-Cigarette/Vaping Use Never Used 07/30/23 12:51 PHQ-9: PHQ-9 Score PHQ-9: Total score 5 07/30/23 13:16 Depression Screening Interpretation: Negative Thrive Assessment: Date of Thrive Assessment Date Thrive assessed 07/30/23 07/30/23 12:51 Currently or been in a relationship where the following occur: no concerns reported Const General: cooperative, comfortable and no acute distress Orientation/consciousness: patient oriented x3 HENMT Head: Yes normocephalic Eyes General: appearance normal, both eyes and all related structures Neck Neck: Yes supple Resp Effort & Inspection: normal respiratory effort, no cough and no stridor Cardio Rhythm: regular rhythm Heart sounds: S1 normal heart sound present and S2 normal heart sound present Skin General skin exam: turgor normal Neuro General: patient oriented x3, tone normal and moves all extremities Extrem Right lower extremity: no edema Left lower extremity: no edema Assessment and Plan Assessment & Plan (1) Hypertension, essential: Code(s): I10 - Essential (primary) hypertension (2) Depression, major, recurrent: Code(s): F33.9 - Major depressive disorder, recurrent, unspecified Qualifiers: Active/Remission status: in full remission Qualified Code(s): F33.42 - Major depressive disorder, recurrent, in full remission (3) Lipid disorder: Code(s): E78.9 - Disorder of lipoprotein metabolism, unspecified (4) Environmental allergies: Code(s): Z91.09 - Other allergy status, other than to drugs and biological substances (5) Chronic GERD: Code(s): K21.9 - Gastro-esophageal reflux disease without esophagitis (6) Bladder disorder: Code(s): N32.9 - Bladder disorder, unspecified Plan Patient is 67-year-old female came in today for her regular follow-up appointment Patient says that she feels she has developed irritable bowel syndrome As she continued to have diarrhea alternating with the regular bowel movements Currently she is taking probiotic which is helping and she has modified her diet She also take Imodium if she is going out the days went she is having predominantly diarrhea symptoms Hypertension: Patient is taking amlodipine 10 mg, atenolol 100 mg blood pressure is well controlled today patient is tolerating medication no side effects Lipid disorder: Continue simvastatin 5 mg patient is tolerating medication Patient is on oxybutynin 10 mg daily for hyperactive bladder she is doing well tolerating medication Allergies are stable with Zyrtec and Flonase nasal spray. Dyspepsia stable with pantoprazole refill sent. Depression: Continue Wellbutrin refill sent Patient has seen [facility] vascular Dr. Anastasiia Carvalho had procedure done for varicosities and is doing very well Labs done recently reviewed with the patient Follow-up 4 months Orders: Orders Complete Blood Count Auto Diff Today E78.9 - Disorder of lipoprotein metabolism, unspecified, F33.42 - Major depressive disorder, recurrent, in full remission, I10 - Essential (primary) hypertension, K21.9 - Gastro-esophageal reflux disease without esophagitis, Z91.09 - Other allergy status, other than to drugs and biological substances Comprehensive [place]. Panel Fast Today E78.9 - Disorder of lipoprotein metabolism, unspecified, F33.42 - Major depressive disorder, recurrent, in full remission, I10 - Essential (primary) hypertension, K21.9 - Gastro-esophageal reflux disease without esophagitis, Z91.09 - Other allergy status, other than to drugs and biological substances Lipid Panel Today E78.9 - Disorder of lipoprotein metabolism, unspecified, F33.42 - Major depressive disorder, recurrent, in full remission, I10 - Essent ial (primary) hypertension, K21.9 - Gastro-esophageal reflux disease without esophagitis, Z91.09 - Other allergy status, other than to drugs and biological substances Coding Level of Care Code Est Pt Level 4 (35179) Diagnoses Hypertension, essential I10 Recurrent major depressive disorder, in full remission F33.42 Active/Remission status: in full remission Lipid disorder E78.9 Environmental allergies Z91.09 Chronic GERD K21.9 Bladder disorder N32.9 Additional Codes MAUREEN-7 Assessment Billing - MAUREEN-7 Assessment Tool: MAUREEN-7 Assessment 40854 ([id number])
== END 2023-07-30 13:11 | disposition home or self-care (01) ==
PROVIDERS: PCP Internal Medicine; Visit Provider Internal Medicine
DX: I10 Essential (primary) hypertension (principal); F33.42 Major depressive disorder, recurrent, in full remission; E78.9 Disorder of lipoprotein metabolism, unspecified; Z91.09 Other allergy status, other than to drugs and biological substances; K21.9 Gastro-esophageal reflux disease without esophagitis; N32.9 Bladder disorder, unspecified
CPT/HCPCS: 99214

== ENCOUNTER 2023-11-26 12:37 | Outpatient (AMB) | payer MEDICARE, SELFPAY ==
[2023-11-26 12:39] VITALS: BP 122/76; PULSE 80; O2SAT 97; BMI 29.8
--- NOTE | 2023-11-26 12:39 | A.OFFPC_ITS ---
Vital Signs 11/26/23 12:39 Height 5 ft 2 in Weight 163 lb BMI 29.8 BP 122/76 Blood Pressure Location Lt brachial Position Sitting Pulse 80 Pulse Source Pulse Oximeter Pulse Oximetry (%) 97 Oxygen Delivery Method Room Air Intake Visit Reasons: 4 Month F/U Allergies Sulfa (Sulfonamide Antibiotics) [Sulfa (Sulfonamides)] Allergy (Mild, Verified 11/26/23 12:41) FLUSHING/RASH lisinopril Adverse Reaction (Unknown, Verified 11/26/23 12:41) cough Medication List - Last Reconciled 11/26/23 by Cyndi Vera MD adjuvant AS01B (PF)vial 1 of 2 (Shingrix Adjuvant Component (PF) intramuscular suspension) 5 mL IM .qd 30 days amlodipine 10 mg PO DAILY 90 days atenolol 100 mg PO DAILY 90 days bupropion HCl XL (Wellbutrin XL) 300 mg PO QAM 90 days cetirizine (Zyrtec) 10 mg PO ONCE 90 days fluticasone propionate 50 mcg/actuation 1 spray intranasal DAILY 30 days ketoconazole 2% 1 appl topical DAILY 3 days lactobacillus combination no.4 (Probiotic) 3,000 mmu cells PO DAILY multivitamin 1 tab PO DAILY oxybutynin chloride ER 10 mg PO DAILY 90 days pantoprazole 40 mg PO DAILY 90 days pneumoc 13-giselle conj-dip cr(PF) (Prevnar 13 (PF)) 0.5 mL IM ONCE 30 days simvastatin 5 mg PO BEDTIME 90 days Tobacco use date assessed: 11/26/23 Fall risk assessment: No Falls in past year Last assessed Fall Risk: 11/26/23 Dental Screening Dental Screen Date: 07/30/23 HPI 4 Month F/U HPI Details Patient is 68-year-old female came in today for her regular follow-up appointment Going in for cataract surgery in January by Dr. Ashlee Simmons, left eye 1st and then right Patient is stable for cataract surgery Hypertension: Patient is taking amlodipine 10 mg, atenolol 100 mg blood pressure is well controlled today patient is tolerating medication no side ef fects Lipid disorder: Continue simvastatin 5 mg patient is tolerating medication Patient is on oxybutynin 10 mg daily for hyperactive bladder she is doing well tolerating medication Allergies are stable with Zyrtec and Flonase nasal spray. Dyspepsia stable with pantoprazole refill sent. Depression: Continue Wellbutrin refill sent Patient has seen [facility] vascular Dr. Anastasiia Carvalho had procedure done for varicosities and is doing very well Labs are due by the end of this month or early next month Follow-up 4 months [facility] Medical History Osteoarthritis of knees, bilateral Bladder disorder Depression, major, recurrent Lipid disorder Vitamin D deficiency Environmental allergies History of breast cancer Hypertension, essential Chronic GERD Surgical History No pertinent past surgical history Social History Housing: House Patient Tobacco Use Status: Former Tobacco user Tobacco use type: Cigarette Years Smoked: 50 years e-Cigarette/Vaping Use: Never Used service: No Current occupational status: retired 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 Cognitive needs: No Hearing needs: No Vision needs: Yes Questionnaire Thrive Questionnaire Date Thrive assessed: 07/30/23 I am a: Patient What is your living situation today?: I have a steady place to live Within the past 12 months, did the food you bought not last and you didn't have the money to get more?: I choose not to answer this question Within the past 12 months, did you worry whether your food would run out before you got money to buy more?: I choose not to answer this question Do you have trouble paying for medicines?: I choose not to answer this question Do you have trouble getting transportation to medical appointments?: I choose not to answer this question Do you have trouble paying your heating and electricity bill?: I choose not to answer this question Do you have trouble taking care of your child, family member or friend?: I choose not to answer this question Do you have trouble with day-to-day activities such as bathing, preparing meals, shopping, managing finances, etc.?: I choose not to answer this question Are you currently unemployed and looking for a job?: I choose not to answer this question Are you interested in more education?: I choose not to answer this question Please select the resources that you would like help with: Housing/Fpc Currently or been in a relationship where the following occur: I choose not to answer THRIVE Score: 0 AUDIT C Alcohol Use Questionnaire (AUDIT-C) 1. How often do you have a drink containing alcohol?: 2-4 times a month 2. How many drinks containing alcohol do you have on a typical day when you are drinking?: 1 or 2 3. How often do you have six or more drinks on one occasion?: Never Total Score: 2 MAUREEN-7 AMB Questionnaire MAUREEN-7 Date MAUREEN - 7 assessed: 07/30/23 Feeling nervous, anxious, or on edge: 0 = Not at all Not being able to stop or control worryin = Not at all Worrying too much about different things: 0 = Not at all Trouble relaxin = Not at all Being so restless that it is hard to sit still: 0 = Not at all Becoming easily annoyed or irritable: 0 = Not at all Feeling afraid as if something awful might happen: 0 = Not at all Total MAUREEN-7 score (0-4 normal; 5-9 mild; 10-14 moderate; 15-21 severe): 0 Source: Developed by Drs. Kristofer Christopher, Yoko Ricci, Kanu Cummins and colleagues, with an educational wes from [employer]. Review of Systems Const Denies chills and Denies fever(s) ENT Denies epistaxis and Denies nasal discharge Card Denies chest pain Resp Denies chest congestion, Denies cough and Denies hemoptysis GI Denies diarrhea and Denies nausea Skin/Breast Denies rash Neuro Reports no additional complaints Psych Reports no additional complaints Endo Reports no additional complaints Physical exam (Primary Care) Vital Signs: Last Vital Signs Pulse 80 11/26/23 12:39 BP 122/76 11/26/23 12:39 Pulse Ox 97 11/26/23 12:39 Oxygen Delivery Method Room Air 11/26/23 12:39 BMI result Body Mass Index 29.8 Tobacco/Smoking Status: Tobacco use Status Tobacco use date assessed 11/26/23 11/26/23 12:44 Patient Tobacco Use Status Former Tobacco user 11/26/23 12:44 Tobacco use type Cigarette 11/26/23 12:44 e-Cigarette/Vaping Use Never Used 11/26/23 12:44 Thrive Assessment: Date of Thrive Assessment Date Thrive assessed 07/30/23 11/26/23 12:44 Currently or been in a relationship where the following occur: I choose not to answer Const General: cooperative, comfortable and no acute distress Orientation/consciousness: patient oriented x3 HENMT Head: Yes normocephalic Eyes General: appearance normal, both eyes and all related structures Neck Neck: Yes supple Resp Effort & Inspection: normal respiratory effort, no cough and no stridor Cardio Rhythm: regular rhythm Heart sounds: S1 normal heart sound present and S2 normal heart sound present Skin General skin exam: turgor normal Neuro General: patient oriented x3, tone normal and moves all extremities Extrem Right lower extremity: no edema Left lower extremity: no edema Assessment and Plan Assessment & Plan (1) Hypertension, essential: Code(s): I10 - Essential (primary) hypertension (2) Lipid disorder: Code(s): E78.9 - Disorder of lipoprotein metabolism, unspecified (3) Hammertoe of right foot: Code(s): M20.41 - Other hammer toe(s) (acquired), right foot (4) Depression, major, recurrent: Code(s): F33.9 - Major depressive disorder, recurrent, unspecified Qualifiers: Active/Remission status: in full remission Qualified Code(s): F33.42 - Major depressive disorder, recurrent, in full remission (5) Environmental allergies: Code(s): Z91.09 - Other allergy status, other than to drugs and biological substances (6) Chronic GERD: Code(s): K21.9 - Gastro-esophageal reflux disease without esophagitis (7) Bladder disorder: Code(s): N32.9 - Bladder disorder, unspecified Plan Patient is 68-year-old female came in today for her regular follow-up appointment Going in for cataract surgery in January by Dr. Ashlee Simmons, left eye 1st and then right Patient is stable for cataract surgery Hypertension: Patient is taking amlodipine 10 mg, atenolol 100 mg blood pressure is well controlled today patient is tolerating medication no side effects Lipid disorder: Continue simvastatin 5 mg patient is tolerating medication Patient is on oxybutynin 10 mg daily for hyperactive bladder she is doing well tolerating medication Allergies are stable with Zyrtec and Flonase nasal spray. Dyspepsia stable with pantoprazole refill sent. Depression: Continue Wellbutrin refill sent Patient has seen [facility] vascular Dr. Anastasiia Carvalho had procedure done for varicosities and is doing very well She has developed hammertoe right foot, and is in need for surgery as it is painful Patient is trying to find proper foot wear to avoid surgery for as long as she can Labs are due by the end of this month or early next month Follow-up 4 months Orders: Orders Lipid Panel Today E78.9 - Disorder of lipoprotein metabolism, unspecified, I10 - Essential (primary) hypertension Comprehensive [place]. Panel Fast Today E78.9 - Disorder of lipoprotein metabolism, unspecified, I10 - Essential (primary) hypertension Complete Blood Count Auto Diff Today E78.9 - Disorder of lipoprotein metabolism, unspecified, I10 - Essential (primary) hypertension Coding Level of Care Code Est Pt Level 4 (88247) Complex EM visit Add On G2211 Diagnoses Hypertension, essential I10 Lipid disorder E78.9 Hammertoe of right foot M20.41 Recurrent major depressive disorder, in full remission F33.42 Active/Remission status: in full remission Environmental allergies Z91.09 Chronic GERD K21.9 Bladder disorder N32.9
== END 2023-11-26 13:07 | disposition home or self-care (01) ==
PROVIDERS: PCP Internal Medicine; Visit Provider Internal Medicine
DX: I10 Essential (primary) hypertension (principal); E78.9 Disorder of lipoprotein metabolism, unspecified; M20.41 Other hammer toe(s) (acquired), right foot; F33.42 Major depressive disorder, recurrent, in full remission; Z91.09 Other allergy status, other than to drugs and biological substances; K21.9 Gastro-esophageal reflux disease without esophagitis; N32.9 Bladder disorder, unspecified
CPT/HCPCS: 99214; G2211

== ENCOUNTER 2023-12-01 09:26 | Outpatient (REF) | payer MEDICARE, SELFPAY ==
[2023-12-01 13:01] LABS: MANUAL DIFF FLAG NO
[2023-12-01 13:16] LABS: Basophils Percent Auto 0.6 % (0-2); Eosinophils Absolute Auto 0.1 X10*3/uL (0.0-0.4); Eosinophils Percent Auto 1.3 % (0-4); Hematocrit 37.7 % (37.0-47.0); Hemoglobin 12.8 g/dl (12.0-16.0); Imm Gran Abs Auto 0.02 X10*3/uL (0.00-0.03); Imm Gran Pct Auto 0.3 % (0.0-0.4); Lymphocytes Absolute Auto 2.1 X10*3/uL (1.2-4.9); Lymphocytes Percent Auto 33.9 % (20-40); Mean Corpuscular Volume 97.2 fL (80.0-98.0); Mean Platelet Volume 10.4 fL (9.4-12.3); Monocytes Absolute Auto 0.5 X10*3/uL (0.1-1.2); Monocytes Percent Auto 8.2 % (2-11); Neutrophils Absolute Auto 3.5 x10*3/uL (2.0-8.3); Neutrophils Percent Auto 55.7 % (45-73); Platelet Count 318 X10*3/uL (160-400); Red Blood Count 3.88 X10*6/uL (4.20-5.50); Red Cell Distribution Width 13.9 % (11.0-16.0); White Blood Count 6.3 X10*3/uL (4.8-10.8)
[2023-12-01 13:43] LABS: Alanine Aminotransferase 18 U/L (0-31); Albumin Level 4.2 g/dL (3.5-5.0); Alkaline Phosphatase 89 U/L (39-117); Anion Gap 16 (12-20); Aspartate Amino Transferase 25 U/L (5-31); Bilirubin Total 0.5 mg/dL (0.0-1.0); Blood Urea Nitrogen 24 mg/dL (9-16); Calcium 10.1 mg/dL (8.4-10.2); Carbon Dioxide 26 mmol/L (22-29); Chloride 105 mmol/L (96-108); Cholesterol 260 mg/dL (<200); Estimated Glomerular Filt Rate 33; Glucose Fasting 117 mg/dL (60-99); HDL Cholesterol 81 mg/dL (>40); LDL Cholesterol Calculated 154 mg/dL (<100); Potassium 3.9 mmol/L (3.3-5.1); Sodium 143 mmol/L (135-145); Total Protein 7.5 g/dL (6.5-8.0); Triglycerides 127 mg/dL (<150)
== END 2023-12-01 09:27 | disposition home or self-care (01) ==
LOC: HO.HMGCLDS 09:26
PROVIDERS: PCP Internal Medicine; Visit Provider Internal Medicine
DX: I10 Essential (primary) hypertension (principal); K21.9 Gastro-esophageal reflux disease without esophagitis; Z91.09 Other allergy status, other than to drugs and biological substances; E78.9 Disorder of lipoprotein metabolism, unspecified; F33.42 Major depressive disorder, recurrent, in full remission
CPT/HCPCS: 36415; 80053; 80061; 85025

== ENCOUNTER 2023-12-31 11:27 | Outpatient (AMB) | payer MEDICARE, SELFPAY ==
--- NOTE | 2023-12-31 11:32 | AM.OFFWIN_ITS ---
Intake Vital Signs 3 12/31/23 11:38 Height 5 ft 2 in Weight 164 lb BMI 30.0 BP 118/76 Blood Pressure Location Lt brachial Position Sitting Pulse 72 Pulse Source Pulse Oximeter Pulse Oximetry (%) 98 Oxygen Delivery Method Room Air Intake Visit Reasons: EP-full back pain Intake Note: Patient here because she had a fall on friday and injured upper back. Patient Tobacco Use Status: Former Tobacco user Allergies Sulfa (Sulfonamide Antibiotics) [Sulfa (Sulfonamides)] Allergy (Mild, Verified 12/31/23 11:38) FLUSHING/RASH lisinopril Adverse Reaction (Unknown, Verified 12/31/23 11:38) cough Medication List - Last Reconciled 12/31/23 by Cyndi Vera MD adjuvant AS01B (PF)vial 1 of 2 (Shingrix Adjuvant Component (PF) intramuscular suspension) 5 mL IM .qd 30 days amlodipine 10 mg PO DAILY 90 days atenolol 100 mg PO DAILY 90 days bupropion HCl XL (Wellbutrin XL) 300 mg PO QAM 90 days cetirizine (Zyrtec) 10 mg PO ONCE 90 days fluticasone propionate 50 mcg/actuation 1 spray intranasal DAILY 30 days ketoconazole 2% 1 appl topical DAILY 3 days lactobacillus combination no.4 (Probiotic) 3,000 mmu cells PO DAILY multivitamin 1 tab PO DAILY oxybutynin chloride ER 10 mg PO DAILY 90 days oxycodone-acetaminophen 5-325 mg (Percocet) 1 tab PO BID PRN 7 days pantoprazole 40 mg PO DAILY 90 days pneumoc 13-giselle conj-dip cr(PF) (Prevnar 13 (PF)) 0.5 mL IM ONCE 30 days simvastatin 5 mg PO BEDTIME 90 days Do you need a note to return to daycare/school/sports/work: No HPI EP-full back pain 2 HPI0 Details Patient is 68-year-old female who slipped and fell in kitchen this past Friday 4 days ago Patient came in because she is having pain right upper back area She can take deep breaths On examination she has a traumatic ecchymosis close to scapula on chest wall I have ordered rib x-ray along with scapula x-ray And Percocet prescribed to be taken at night so she can lay on her back and sleep Currently patient is having difficulty raising her right arm because of pain in that location. Review system reveals no nausea no vomiting no cough no shortness a breath. 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 Cognitive needs: No Hearing needs: No Vision needs: Yes Review of Systems Const All systems reviewed & are unremarkable except as noted in HPI and below Physical Exam Vital Signs: Last Vital Signs Pulse 72 12/31/23 11:38 BP 118/76 12/31/23 11:38 Pulse Ox 98 12/31/23 11:38 Oxygen Delivery Method Room Air 12/31/23 11:38 BMI result Body Mass Index 30.0 Const General: no acute distress Orientation/consciousness: patient oriented x3 Eyes General: appearance normal, both eyes and all related structures Resp Effort & Inspection: normal respiratory effort and able to speak in complete sentences Auscultation: clear to auscultation bilaterally Cardio Other: S1 S2 Back/Spine/Pelvis Back/spine/pelvis image: 2 1. Site of ecchymosis and tenderness Neuro General: patient oriented x3 Psych Mental Status: mental status grossly normal Assessment & Plan Assessment & Plan (1) Fall: Code(s): W19.XXXA - Unspecified fall, initial encounter Qualifiers: Encounter type: initial encounter Qualified Code(s): W19.XXXA - Unspecified fall, initial encounter (2) Chest injury: Code(s): S29.9XXA - Unspecified injury of thorax, initial encounter Qualifiers: Encounter type: initial encounter Qualified Code(s): S29.9XXA - Unspecified injury of thorax, initial encounter Plan Patient is 68-year-old female who slipped and fell in kitchen this past Friday 4 days ago Patient came in because she is having pain right upper back area She can take deep breaths On examination she has a traumatic ecchymosis close to scapula on chest wall I have ordered rib x-ray along with scapula x-ray And Percocet prescribed to be taken at night so she can lay on her back and sleep Currently patient is having difficulty raising her right arm because of pain in that location. Review system reveals no nausea no vomiting no cough no shortness a breath. Orders: Orders 2 XR ribs RT min 3V w CXR1V Today S29.9XXA - Unspecified injury of thorax, initial encounter, W19.XXXA - Unspecified fall, initial encounter XR scapula LT Today S29.9XXA - Unspecified injury of thorax, initial encounter, W19.XXXA - Unspecified fall, initial encounter Medications: New 2 oxycodone-acetaminophen 5-325 mg (Percocet) Partial Fill upon patient request. 1 tab PO BID PRN 14 tabs 0RF pain 7 days Coding Level of Care Code Est Pt Level 4 (22389) Diagnoses Fall, initial encounter W19.XXXA Encounter type: initial encounter Chest injury, initial encounter S29.9XXA Encounter type: initial encounter
[2023-12-31 11:38] VITALS: BP 118/76; PULSE 72; O2SAT 98
== END 2023-12-31 12:00 | disposition home or self-care (01) ==
PROVIDERS: PCP Internal Medicine; Visit Provider Internal Medicine
DX: S29.9XXA Unspecified injury of thorax, initial encounter (principal); W19.XXXA Unspecified fall, initial encounter
CPT/HCPCS: 99214

== ENCOUNTER 2023-12-31 11:49 | Outpatient (REF) | payer MEDICARE, SELFPAY ==
--- NOTE | ~2023-12-31 | XR_ITS ---
EXAMINATION: XR RIGHT SCAPULA XR CHEST AND RIGHT RIBS CLINICAL INFORMATION: Unspecified fall. COMPARISON: 12/10/2022 right shoulder, 02/14/2021 right ribs. TECHNIQUE: 2 views of the right scapula and 4 views of the right ribs. FINDINGS: RIGHT SCAPULA: Diffuse demineralization. Interval healing of previously noted mildly displaced fracture through the greater tuberosity since 12/10/2022. Surgical clips right axilla. Mild osteoarthritic changes in the acromioclavicular joint. No gross displaced fracture of the scapula is appreciated, although evaluation is limited due to demineralization. RIGHT RIBS: Diffuse demineralization. Postsurgical changes with clips right axilla redemonstrated. Retrocardiac soft tissue focus characteristic of a hiatal hernia redemonstrated. Degenerative changes in the thoracic spine. Heart size within normal limits. There is no gross pneumothorax. Displaced fracture along the posterior aspect of the right fourth rib. XR/XR scapula RT IMPRESSION: 1. Displaced fracture along the posterior aspect of the right fourth rib. 2. Interval healing of previously noted mildly displaced fracture through the greater tuberosity since 12/10/2022. 3. No gross displaced fracture of the scapula is appreciated, although evaluation is limited due to demineralization. CT scan could be considered for further evaluation. This study was presented today, January 13, 2024, for interpretation. Stat results provided at this time as requested by referring provider. Electronically signed by: Josselyn Kramer MD 01/13/2024 09:58 AM EDT
--- NOTE | ~2023-12-31 | XR_ITS ---
EXAMINATION: XR RIGHT SCAPULA XR CHEST AND RIGHT RIBS CLINICAL INFORMATION: Unspecified fall. COMPARISON: 12/10/2022 right shoulder, 02/14/2021 right ribs. TECHNIQUE: 2 views of the right scapula and 4 views of the right ribs. FINDINGS: RIGHT SCAPULA: Diffuse demineralization. Interval healing of previously noted mildly displaced fracture through the greater tuberosity since 12/10/2022. Surgical clips right axilla. Mild osteoarthritic changes in the acromioclavicular joint. No gross displaced fracture of the scapula is appreciated, although evaluation is limited due to demineralization. RIGHT RIBS: Diffuse demineralization. Postsurgical changes with clips right axilla redemonstrated. Retrocardiac soft tissue focus characteristic of a hiatal hernia redemonstrated. Degenerative changes in the thoracic spine. Heart size within normal limits. There is no gross pneumothorax. Displaced fracture along the posterior aspect of the right fourth rib. XR/XR ribs RT min 3V w CXR1V IMPRESSION: 1. Displaced fracture along the posterior aspect of the right fourth rib. 2. Interval healing of previously noted mildly displaced fracture through the greater tuberosity since 12/10/2022. 3. No gross displaced fracture of the scapula is appreciated, although evaluation is limited due to demineralization. CT scan could be considered for further evaluation. This study was presented today, January 13, 2024, for interpretation. Stat results provided at this time as requested by referring provider. Electronically signed by: Josselyn Kramer MD 01/13/2024 09:58 AM EDT
== END 2023-12-31 11:50 | disposition home or self-care (01) ==
LOC: HO.HMGCX 11:49
PROVIDERS: PCP Internal Medicine; Visit Provider Internal Medicine
DX: S29.9XXA Unspecified injury of thorax, initial encounter (principal); W19.XXXA Unspecified fall, initial encounter
CPT/HCPCS: 71101; 73010

== ENCOUNTER 2024-01-16 13:37 | Outpatient (AMB) | payer MEDICARE, SELFPAY ==
[2024-01-16 13:40] VITALS: BP 116/76; PULSE 80; O2SAT 96; BMI 29.4
--- NOTE | 2024-01-16 13:40 | MHC.PC.OV ---
Vital Signs 01/16/24 13:40 Height 5 ft 2 in Weight 161 lb BMI 29.4 BP 116/76 Blood Pressure Location Lt brachial Position Sitting Pulse 80 Pulse Source Pulse Oximeter Pulse Oximetry (%) 96 Oxygen Delivery Method Room Air Intake Visit Reasons: Pre Op Cataract Surgery Allergies Sulfa (Sulfonamide Antibiotics) [Sulfa (Sulfonamides)] Allergy (Mild, Verified 01/16/24 13:41) FLUSHING/RASH lisinopril Adverse Reaction (Unknown, Verified 01/16/24 13:41) cough Medication List - Last Reconciled 01/16/24 by Cyndi Vera MD adjuvant AS01B (PF)vial 1 of 2 (Shingrix Adjuvant Component (PF) intramuscular suspension) 5 mL IM .qd 30 days amlodipine 10 mg PO DAILY 90 days atenolol 100 mg PO DAILY 90 days bupropion HCl XL (Wellbutrin XL) 300 mg PO QAM 90 days cetirizine (Zyrtec) 10 mg PO ONCE 90 days fluticasone propionate 50 mcg/actuation 1 spray intranasal DAILY 30 days ketoconazole 2% 1 appl topical DAILY 3 days lactobacillus combination no.4 (Probiotic) 3,000 mmu cells PO DAILY multivitamin 1 tab PO DAILY oxybutynin chloride ER 10 mg PO DAILY 90 days oxycodone-acetaminophen 5-325 mg (Percocet) 1 tab PO BID PRN 7 days pantoprazole 40 mg PO DAILY 90 days simvastatin 5 mg PO BEDTIME 90 days Tobacco use date assessed: 01/16/24 Fall risk assessment: No Falls in past year Last assessed Fall Risk: 01/16/24 Dental Screening Dental Screen Date: 01/16/24 Did you have a dental visit in the last 12 months?: No Did you have a dental problem in the last 6 months where you did not have access to dental care?: No Was dental information given to patient?: No HPI Pre Op Cataract Surgery HPI Details Patient is 68-year-old female came in today for her regular follow-up appointment Going in for cataract surgery January [address] Ashlee Simmons, left eye 1st and then right eye 2 weeks later Patient is stable for cataract surgery Patient fell in her kitchen few weeks ago ended up having pain right side X-ray shows fracture of 4th right rib posteriorly where she is having pain Manageable with the help of Percocet, refill sent, gradually healing Hypertension: Patient is taking amlodipine 10 mg, atenolol 100 mg blood pressure is well controlled today patient is tolerating medication no side effects Lipid disorder: Continue simvastatin 5 mg patient is tolerating medication Patient is on oxybutynin 10 mg daily for hyperactive bladder she is doing well tolerating medication Allergies are stable with Zyrtec and Flonase nasal spray. Dyspepsia stable with pantoprazole refill sent. Depression: Continue Wellbutrin refill sent Patient has seen [facility] vascular Dr. 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 1. Little interest or pleasure in doing things: not at all 2. Feeling down, depressed, or hopeless: not at all 3. Trouble falling or staying asleep, or sleeping too much: not at all 4. Feeling tired or having little energy: not at all 5. Poor appetite or overeating: not at all 6. Feeling bad about yourself - or that you are a failure or have let yourself or your family down: not at all 7. Trouble concentrating on things, such as reading the newspaper or watching television: not at all 8. Moving or speaking so slowly that other people could have noticed. Or the opposite - being so fidgety or restless that you have been moving around a lot more than usual: not at all 9. Thoughts that you would be better off or of hurting yourself in some way: not at all Total score: 0 Depression Screening Interpretation: Negative Depression Screening Done: Yes 31353 - PHQ-9 Billing: Yes Source: Developed by Drs. Kristofer Christopher, Yoko Ricci, Kanu Cummins and colleagues, with an educational wes from [employer]. Thrive Questionnaire Date Thrive assessed: 01/16/24 I am a: Patient What is your living situation today?: I have a steady place to live Within the past 12 months, did the food you bought not last and you didn't have the money to get more?: I choose not to answer this question Within the past 12 months, did you worry whether your food would run out before you got money to buy more?: I choose not to answer this question Do you have trouble paying for medicines?: I choose not to answer this question Do you have trouble getting transportation to medical appointments?: I choose not to answer this question Do you have trouble paying your heating and electricity bill?: I choose not to answer this question Do you have trouble taking care of your child, family member or friend?: I choose not to answer this question Do you have trouble with day-to-day activities such as bathing, preparing meals, shopping, managing finances, etc.?: I choose not to answer this question Are you currently unemployed and looking for a job?: I choose not to answer this question Are you interested in more education?: I choose not to answer this question Please select the resources that you would like help with: None Currently or been in a relationship where the following occur: I choose not to answer THRIVE Score: 0 AUDIT C Alcohol Use Questionnaire (AUDIT-C) 1. How often do you have a drink containing alcohol?: 2-4 times a month 2. How many drinks containing alcohol do you have on a typical day when you are drinking?: 1 or 2 3. How often do you have six or more drinks on one occasion?: Never Total Score: 2 Score Reviewed/Action Taken: Yes MAUREEN-7 AMB Questionnaire MAUREEN-7 Date MAUREEN - 7 assessed: 07/30/23 Source: Developed by Yoko Jones Kurt Kroenke and colleagues, with an educational wes from [employer]. Review of Systems Const Denies chills and Denies fever(s) ENT Denies epistaxis and Denies nasal discharge Resp Denies chest congestion, Denies cough and Denies hemoptysis GI Denies diarrhea and Denies nausea Skin/Breast Denies rash Neuro Reports no additional complaints Psych Reports no additional complaints Endo Reports no additional complaints Physical exam (Primary Care) Vital Signs: Last Vital Signs Pulse 80 01/16/24 13:40 BP 116/76 01/16/24 13:40 Pulse Ox 96 01/16/24 13:40 Oxygen Delivery Method Room Air 01/16/24 13:40 BMI result Body Mass Index 29.4 Tobacco/Smoking Status: Tobacco use Status Tobacco use date assessed 01/16/24 01/16/24 13:42 Patient Tobacco Use Status Former Tobacco user 01/16/24 13:42 Tobacco use type Cigarette 01/16/24 13:42 e-Cigarette/Vaping Use Never Used 01/16/24 13:42 PHQ-9: PHQ-9 Score PHQ-9: Total score 0 01/16/24 14:05 Depression Screening Interpretation: Negative Thrive Assessment: Date of Thrive Assessment Date Thrive assessed 01/16/24 01/16/24 13:42 Currently or been in a relationship where the following occur: I choose not to answer Const General: cooperative, comfortable and no acute distress Orientation/consciousness: patient oriented x3 HENMT Head: Yes normocephalic Eyes General: appearance normal, both eyes and all related structures Neck Neck: Yes supple Resp Effort & Inspection: normal respiratory effort, no cough and no stridor Cardio Rhythm: regular rhythm Heart sounds: S1 normal heart sound present and S2 normal heart sound present Back/Spine/Pelvis Back/spine/pelvis image: 1. Tender to pressure Skin General skin exam: turgor normal Neuro General: patient oriented x3, tone normal and moves all extremities Extrem Right lower extremity: no edema Left lower extremity: no edema Assessment and Plan Assessment & Plan (1) Pre-op evaluation: Code(s): Z01.818 - Encounter for other preprocedural examination (2) Cataract: Code(s): H26.9 - Unspecified cataract Qualifiers: Age-related cataract type: nuclear Cataract type: age-related Laterality: bilateral Qualified Code(s): H25.13 - Age-related nuclear cataract, bilateral (3) Fracture of rib of right side: Code(s): S22.31XA - Fracture of one rib, right side, initial encounter for closed fracture Qualifiers: Encounter type: subsequent encounter Fracture healing: with routine healing Fracture type: closed Rib fracture type: single rib Qualified Code(s): S22.31XD - Fracture of one rib, right side, subsequent encounter for fracture with routine healing (4) Hypertension, essential: Code(s): I10 - Essential (primary) hypertension (5) Lipid disorder: Code(s): E78.9 - Disorder of lipoprotein metabolism, unspecified (6) Depression, major, recurrent: Code(s): F33.9 - Major depressive disorder, recurrent, unspecified Qualifiers: Active/Remission status: in full remission Qualified Code(s): F33.42 - Major depressive disorder, recurrent, in full remission (7) Environmental allergies: Code(s): Z91.09 - Other allergy status, other than to drugs and biological substances (8) Chronic GERD: Code(s): K21.9 - Gastro-esophageal reflux disease without esophagitis (9) Bladder disorder: Code(s): N32.9 - Bladder disorder, unspecified Plan Patient is 68-year-old female came in today for her regular follow-up appointment Going in for cataract surgery January [address] Ashlee Simmons, left eye 1st and then right eye 2 weeks later Patient is stable for cataract surgery Patient fell in her kitchen few weeks ago ended up having pain right side X-ray shows fracture of 4th right rib posteriorly where she is having pain Manageable with the help of Percocet, refill sent, gradually healing Hypertension: Patient is taking amlodipine 10 mg, atenolol 100 mg blood pressure is well controlled today patient is tolerating medication no side effects Lipid disorder: Continue simvastatin 5 mg patient is tolerating medication Patient is on oxybutynin 10 mg daily for hyperactive bladder she is doing well tolerating medication Allergies are stable with Zyrtec and Flonase nasal spray. Dyspepsia stable with pantoprazole refill sent. Depression: Continue Wellbutrin refill sent Patient has seen [facility] vascular Dr. Anastasiia Carvalho had procedure done for varicosities and is doing very well Medications: Refilled oxycodone-acetaminophen 5-325 mg (Percocet) Partial Fill upon patient request. 1 tab PO BID PRN 14 tabs 0RF pain 7 days Coding Level of Care Code Est Pt Level 4 (50134) Diagnoses Pre-op evaluation Z01.818 Age-related nuclear cataract of both eyes H25.13 Age-related cataract type: nuclear Cataract type: age-related Laterality: bilateral Closed fracture of one rib of right side with routine healing, subsequent encounter S22.31XD Encounter type: subsequent encounter Fracture healing: with routine healing Fracture type: closed Rib fracture type: single rib Hypertension, essential I10 Lipid disorder E78.9 Recurrent major depressive disorder, in full remission F33.42 Active/Remission status: in full remission Environmental allergies Z91.09 Chronic GERD K21.9 Bladder disorder N32.9
== END 2024-01-16 14:11 | disposition home or self-care (01) ==
PROVIDERS: PCP Internal Medicine; Visit Provider Internal Medicine
DX: I10 Essential (primary) hypertension (principal); F33.42 Major depressive disorder, recurrent, in full remission; Z01.818 Encounter for other preprocedural examination; H25.13 Age-related nuclear cataract, bilateral; S22.31XD Fracture of one rib, right side, subsequent encounter for fracture with routine healing; E78.9 Disorder of lipoprotein metabolism, unspecified; Z91.09 Other allergy status, other than to drugs and biological substances; K21.9 Gastro-esophageal reflux disease without esophagitis; N32.9 Bladder disorder, unspecified

== ENCOUNTER → 2024-01-16 13:37 | Outpatient (BNVA) | payer MEDICARE, SELFPAY | PROVIDERS: PCP Internal Medicine; Visit Provider Internal Medicine | DX: Z01.818 Encounter for other preprocedural examination (principal); H25.13 Age-related nuclear cataract, bilateral; I10 Essential (primary) hypertension; E78.9 Disorder of lipoprotein metabolism, unspecified; F33.42 Major depressive disorder, recurrent, in full remission; K21.9 Gastro-esophageal reflux disease without esophagitis; N32.9 Bladder disorder, unspecified; Z91.09 Other allergy status, other than to drugs and biological substances | CPT/HCPCS: 96127; 99212 ==

== ENCOUNTER 2024-03-19 09:40 | Outpatient (AMB) | payer MEDICARE, SELFPAY ==
[2024-03-19 09:50] VITALS: BP 130/80; PULSE 80; O2SAT 97; BMI 30.2
--- NOTE | 2024-03-19 09:50 | MHC.OFFWIV ---
Intake Vital Signs 03/19/24 09:50 Height 5 ft 2 in Weight 165 lb BMI 30.2 BP 130/80 Blood Pressure Location Lt brachial Position Sitting Pulse 80 Pulse Source Pulse Oximeter Pulse Oximetry (%) 97 Oxygen Delivery Method Room Air Intake Visit Reasons: EP ?Shingles Intake Note: Patient her for red blisters on wrist of left hand. Patient Tobacco Use Status: Former Tobacco user Allergies Sulfa (Sulfonamide Antibiotics) [Sulfa (Sulfonamides)] Allergy (Mild, Verified 03/19/24 09:59) FLUSHING/RASH lisinopril Adverse Reaction (Unknown, Verified 03/19/24 09:59) cough Medication List - Last Reconciled 03/19/24 by Rhonda Harris CNP adjuvant AS01B (PF)vial 1 of 2 (Shingrix Adjuvant Component (PF) intramuscular suspension) 5 mL IM .qd 30 days amlodipine 10 mg PO DAILY 90 days atenolol 100 mg PO DAILY 90 days bupropion HCl XL (Wellbutrin XL) 300 mg PO QAM 90 days cetirizine (Zyrtec) 10 mg PO ONCE 90 days fluticasone propionate 50 mcg/actuation 1 spray intranasal DAILY 30 days ketoconazole 2% 1 appl topical DAILY 3 days lactobacillus combination no.4 (Probiotic) 3,000 mmu cells PO DAILY multivitamin 1 tab PO DAILY oxybutynin chloride ER 10 mg PO DAILY 90 days oxycodone-acetaminophen 5-325 mg (Percocet) 1 tab PO BID PRN 7 days pantoprazole 40 mg PO DAILY 90 days simvastatin 5 mg PO BEDTIME 90 days Do you need a note to return to daycare/school/sports/work: No HPI HPI Comments History of Present Illness Details 68 YO female presents today for c/o raised rash left lower forearm that she noticed 2 days ago, she does report pain at rash area, she denies using any new soaps, detergent, creams, deodorants or unusual foods. She has had shingles in the past that were only localized under her left breast, she reports this rash is very similar in appearance to that rash. She denies fever, chills, CP, SOB, abdominal pain, changes in bowels or bladder. 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 Cognitive needs: No Hearing needs: No Vision needs: Yes Review of Systems Const All systems reviewed & are unremarkable except as noted in HPI and below Physical Exam Vital Signs: Last Vital Signs Pulse 80 03/19/24 09:50 BP 130/80 03/19/24 09:50 Pulse Ox 97 03/19/24 09:50 Oxygen Delivery Method Room Air 03/19/24 09:50 BMI result Body Mass Index 30.2 Const General: cooperative, healthy appearing, no acute distress and well developed Orientation/consciousness: patient oriented x3 Limitations: no limitations HEENT Head: Yes normal to inspection Ears: hearing grossly normal bilaterally Face and sinus: Yes normal facial exam Mouth: Normal oral and palatal mucosa present Eyes General: appearance normal, both eyes and all related structures Neck Neck: Yes normal visual inspection, Yes full ROM and Yes no lymphadenopathy Chest Chest palpation & inspection: normal inspection of the chest Resp Effort & Inspection: normal respiratory effort, no cough, no respiratory distress and not tachypneic Auscultation: clear to auscultation bilaterally Cardio Rate: regular rate Rhythm: regular rhythm Heart sounds: S1 normal heart sound present, S2 normal heart sound present and no murmurs Peripheral pulses: Peripheral pulses 2+ throughout GI Inspection: Yes normal to inspection Palpation (GI): Soft to palpation, nontender and no guarding Auscultation: normal bowel sounds General: Yes no CVA tenderness Back/Spine/Pelvis Back: no CVA tenderness Skin General skin exam: turgor normal Rashes: rashes noted (left lower forearm w/ 2 small blisters that are in cluster. ) Neuro General: patient oriented x3, gait normal and moves all extremities Extrem General: Yes full ROM and Yes capillary refill normal Psych Appearance: well kempt Mental Status: mental status grossly normal Attitude: cooperative Assessment & Plan Assessment & Plan (1) Herpes zoster: Code(s): B02.9 - Zoster without complications Qualifiers: Herpes zoster complications: without complications Qualified Code(s): B02.9 - Zoster without complications Plan: 68 YO female with 2 day clustered rash on left lower forearm which appears to be Shingles. Will treat with Acyclovir 800 mg po tid x 7 days, encouraged to take Ibuprofen alternating with acetaminophen for pain, if pain is not managed, encouraged to f/u with her PCP. Medications: New acyclovir 800 mg PO TID 21 tabs 0RF 7 days B02.9 - Zoster without complications Coding Level of Care Code Est Pt Level 3 (16645) Diagnoses Herpes zoster without complication B02.9 Herpes zoster complications: without complications
== END 2024-03-19 10:23 | disposition home or self-care (01) ==
PROVIDERS: PCP Internal Medicine; Visit Provider Nurse Practitioner Acute Care
DX: B02.9 Zoster without complications (principal)

== ENCOUNTER → 2024-03-19 09:40 | Outpatient (BNVA) | payer MEDICARE, SELFPAY | PROVIDERS: PCP Internal Medicine; Visit Provider Nurse Practitioner Acute Care | DX: B02.9 Zoster without complications (principal) | CPT/HCPCS: 99212 ==

== ENCOUNTER 2024-04-23 12:21 | Outpatient (REF) | payer MEDICARE, SELFPAY ==
[2024-04-23 17:19] LABS: Alanine Aminotransferase 17 U/L (0-31); Albumin Level 4.1 g/dL (3.5-5.0); Alkaline Phosphatase 84 U/L (39-117); Anion Gap 14 (12-20); Aspartate Amino Transferase 29 U/L (5-31); Bilirubin Total 0.6 mg/dL (0.0-1.0); Blood Urea Nitrogen 15 mg/dL (9-16); Calcium 8.8 mg/dL (8.4-10.2); Carbon Dioxide 27 mmol/L (22-29); Chloride 101 mmol/L (96-108); Estimated Glomerular Filt Rate 56; Glucose Random 109 mg/dL (60-115); Potassium 3.6 mmol/L (3.3-5.1); Sodium 138 mmol/L (135-145); Total Protein 7.2 g/dL (6.5-8.0)
== END 2024-04-23 12:22 | disposition home or self-care (01) ==
LOC: HO.HMGCLDS 12:21
PROVIDERS: PCP Internal Medicine; Visit Provider Internal Medicine
DX: I10 Essential (primary) hypertension (principal)
CPT/HCPCS: 36415; 80053

== ENCOUNTER 2024-04-28 15:01 | Outpatient (AMB) | payer MEDICARE, SELFPAY ==
[2024-04-28 15:05] VITALS: BP 136/82; PULSE 124; O2SAT 95; BMI 30.1
--- NOTE | 2024-04-28 15:05 | A.OFFPC_ITS ---
Vital Signs 04/28/24 15:05 Height 5 ft 2 in Weight 164 lb 6 oz BMI 30.1 BP 136/82 Blood Pressure Location Lt brachial Position Sitting Pulse 124 H Pulse Source Pulse Oximeter Pulse Oximetry (%) 95 Oxygen Delivery Method Room Air Intake Visit Reasons: Annual PE Allergies Sulfa (Sulfonamide Antibiotics) [Sulfa (Sulfonamides)] Allergy (Mild, Verified 04/28/24 15:05) FLUSHING/RASH lisinopril Adverse Reaction (Unknown, Verified 04/28/24 15:05) cough Medication List - Last Reconciled 04/28/24 by Cyndi Vera MD acyclovir 800 mg PO TID 7 days adjuvant AS01B (PF)vial 1 of 2 (Shingrix Adjuvant Component (PF) intramuscular suspension) 5 mL IM .qd 30 days amlodipine 10 mg PO DAILY 90 days atenolol 100 mg PO DAILY 90 days bupropion HCl XL (Wellbutrin XL) 300 mg PO QAM 90 days cetirizine (Zyrtec) 10 mg PO ONCE 90 days fluticasone propionate 50 mcg/actuation 1 spray intranasal DAILY 30 days ketoconazole 2% 1 appl topical DAILY 3 days lactobacillus combination no.4 (Probiotic) 3,000 mmu cells PO DAILY multivitamin 1 tab PO DAILY oxybutynin chloride ER 10 mg PO DAILY 90 days pantoprazole 40 mg PO DAILY 90 days simvastatin 5 mg PO BEDTIME 90 days Tobacco use date assessed: 04/28/24 Fall risk assessment: No Falls in past year Last assessed Fall Risk: 04/28/24 Dental Screening Dental Screen Date: 04/28/24 Did you have a dental visit in the last 12 months?: No Did you have a dental problem in the last 6 months where you did not have access to dental care?: No Was dental information given to patient?: Patient has dentist HPI Annual PE HPI Details - The patient is a 68-year-old female pr esenting for a routine physical examination and the management of multiple chronic conditions. - Hypertension is managed with amlodipin e and atenolol. - GERD is treated with pantoprazole. - Urinary incontinence is treated with o xybutinine, while allergic rhinitis with Zyrtec. - Hyperlipidemia is managed with rosuvas tatin. - She has recently undergone cataract perry rgery but experiences increased sunlight sensitivity.. - Experiences heightened anxiety, notice d with elevated pulse rates and occasional increased alcohol use. - Previous mammogram performed last year ; however, no recent Pap smear due to personal choice. - Colonoscopy was normal in 2021, with t he follow-up recommended in five years. - Kidney function has improved, noted wi th a filtration rate increase to 56. - Acknowledges increased alcohol use dur ing holidays, impacting anxiety and balance. - Recently began B-complex vitamins for hair health. Health Maintenance - Mammogram performed last year; needs t o schedule for this year. - Colonoscopy conducted on August 13, with normal findings; next in five y ears. - Discussed the impact of alcohol on bal ance and mental health; advised reduction. Medications - Amlodipine 10 mg for hypertension - Atenolol 100 mg for hypertension - Pantoprazole for GERD - Oxybutinine for urinary incontinence - Zyrtec for allergic rhinitis - Wellbutrin for major depressive disord er (not regular) - Simvastatin for hyperlipidemia - B-complex vitamins for hair health - Rosuvastatin 5 mg for hyperlipidemia Diagnostic results - Labs: - CBC in November with normal hemo globin. - Metabolic profile in April showed im proved kidney function, eGFR now 56. - Colonoscopy: Normal results on July 212021, at [facility]. Review of Systems - Cardiovascular: Reports occasional pal pitations; denies regular alcohol consumption influencing symptoms. - Gastrointestinal: Denies recent gastro intestinal symptoms. - Genitourinary: Denies changes in urina ry incontinence status. - Dermatological: Reports usage of B-com plex for hair health. - Ophthalmological: Reports increased se nsitivity to sunlight post-cataract surgery. - General: No fever no chills - Neurological: No headaches no dizzin ess - Ear nose throat: No sore throat no hearing difficulty no ear pain - Endocrine: No polyuria polydipsia no heat intolerance - Genitourinary: No dysuria - Skin: No new complaints Physical Exam General: Cooperative, healthy appearing, comfortable, no acute distress Orientation: Patient oriented x3 Limitations: None Head: Normal to inspection Ears: Within normal limit visually Nose: Normal external nose present Face and sinus: Normal facial exam Eyes: Appearance normal, extraocular movement intact pupils reactive Neck: Normal visual inspection and supple Respiratory: Normal respiratory effort and able to speak in complete sentences. Clear to auscultation, no stridor Breast exam: Declined by the patient Cardiovascular: S1 and S2, pulse is very high at 124 GI: Normal to inspection. Soft to palpation and nontender Skin: Turgor normal, no acute findings Neuro: Patient oriented x3, motor sensory intact, balance off, tandem pass Extremities: Normal to inspection Patient Instructions - Schedule and attend mammogram for this year. - Follow up with colonoscopy in five yea rs. - Continue existing medication regimen a nd report any concerns. - Limit alcohol consumption to reduce an xiety and improve balance. - Return in one year for routine physica l - try to lose weight BMI is elevated at 30.1 Regular follow-up 3 months [facility] Medical History Osteoarthritis of knees, bilateral Bladder disorder Depression, major, recurrent Lipid disorder Vitamin D deficiency Environmental allergies History of breast cancer Hypertension, essential Chronic GERD Surgical History No pertinent past surgical history Social History Housing: House Patient Tobacco Use Status: Former Tobacco user Tobacco use type: Cigarette Years Smoked: 50 years e-Cigarette/Vaping Use: Never Used service: No Current occupational status: retired 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 1. Little interest or pleasure in doing things: not at all 2. Feeling down, depressed, or hopeless: not at all 3. Trouble falling or staying asleep, or sleeping too much: not at all 4. Feeling tired or having little energy: not at all 5. Poor appetite or overeating: not at all 6. Feeling bad about yourself - or that you are a failure or have let yourself or your family down: not at all 7. Trouble concentrating on things, such as reading the newspaper or watching television: not at all 8. Moving or speaking so slowly that other people could have noticed. Or the opposite - being so fidgety or restless that you have been moving around a lot more than usual: not at all 9. Thoughts that you would be better off or of hurting yourself in some way: not at all Total score: 0 Depression Screening Interpretation: Negative Depression Screening Done: Yes 68232 - PHQ-9 Billing: Yes Source: Developed by Drs. Kristofer Christopher, Yoko Ricci, Kanu Cummins and colleagues, with an educational wes from [employer]. Thrive Questionnaire Date Thrive assessed: 04/28/24 I am a: Patient What is your living situation today?: I choose not to answer this question Within the past 12 months, did the food you bought not last and you didn't have the money to get more?: I choose not to answer this question Within the past 12 months, did you worry whether your food would run out before you got money to buy more?: I choose not to answer this question Do you have trouble paying for medicines?: I choose not to answer this question Do you have trouble getting transportation to medical appointments?: I choose not to answer this question Do you have trouble paying your heating and electricity bill?: I choose not to answer this question Do you have trouble taking care of your child, family member or friend?: I choose not to answer this question Do you have trouble with day-to-day activities such as bathing, preparing meals, shopping, managing finances, etc.?: I choose not to answer this question Are you currently unemployed and looking for a job?: I choose not to answer this question Are you interested in more education?: I choose not to answer this question Please select the resources that you would like help with: None Currently or been in a relationship where the following occur: I choose not to answer THRIVE Score: 0 AUDIT C Alcohol Use Questionnaire (AUDIT-C) 1. How often do you have a drink containing alcohol?: 2-4 times a month 2. How many drinks containing alcohol do you have on a typical day when you are drinking?: 1 or 2 3. How often do you have six or more drinks on one occasion?: Never Total Score: 2 Score Reviewed/Action Taken: Yes MAUREEN-7 AMB Questionnaire MAUREEN-7 Date MAUREEN - 7 assessed: 04/28/24 Feeling nervous, anxious, or on edge: 0 = Not at all Not being able to stop or control worryin = Not at all Worrying too much about different things: 0 = Not at all Trouble relaxin = Not at all Being so restless that it is hard to sit still: 0 = Not at all Becoming easily annoyed or irritable: 0 = Not at all Feeling afraid as if something awful might happen: 0 = Not at all Total MAUREEN-7 score (0-4 normal; 5-9 mild; 10-14 moderate; 15-21 severe): 0 Source: Developed by Drs. Kristofer Christopher, Yoko Ricci, Kanu Cummins and colleagues, with an educational wes from [employer]. MAUREEN-7 Assessment Billing MAUREEN-7 Assessment Tool: MAUREEN-7 Assessment 83155 Physical exam (Primary Care) Vital Signs: Last Vital Signs Pulse 124 H 04/28/24 15:05 BP 136/82 04/28/24 15:05 Pulse Ox 95 04/28/24 15:05 Oxygen Delivery Method Room Air 04/28/24 15:05 BMI result Body Mass Index 30.1 Tobacco/Smoking Status: Tobacco use Status Tobacco use date assessed 04/28/24 04/28/24 15:11 Patient Tobacco Use Status Former Tobacco user 04/28/24 15:07 Tobacco use type Cigarette 04/28/24 15:07 e-Cigarette/Vaping Use Never Used 04/28/24 15:07 PHQ-9: PHQ-9 Score PHQ-9: Total score 0 04/28/24 15:11 Depression Screening Interpretation: Negative Thrive Assessment: Date of Thrive Assessment Date Thrive assessed 04/28/24 04/28/24 15:11 Currently or been in a relationship where the following occur: I choose not to answer Coding Level of Care Code Est Pt Level 3 (04995) Est Pt Prev Care >65y(37961) Diagnoses Encounter for general adult medical examination with abnormal findings Z00.01 Hypertension, essential I10 Environmental allergies Z91.09 Vitamin D deficiency E55.9 Lipid disorder E78.9 Recurrent major depressive disorder, in full remission F33.42 Active/Remission status: in full remission Chronic GERD K21.9 Hammertoe of right foot M20.41 Moderate alcohol consumption Z78.9 Additional Codes MAUREEN-7 Assessment Billing - MAUREEN-7 Assessment Tool: MAUREEN-7 Assessment 35982 ([id number]) PHQ-9 - 70424 - PHQ-9 Billing: Yes ([id number]) Assessment & Plan Assessment & Plan (1) Encounter for general adult medical examination with abnormal findings: Code(s): Z00.01 - Encounter for general adult medical examination with abnormal findings Category: Medical (2) Hypertension, essential: Code(s): I10 - Essential (primary) hypertension Category: Medical (3) Environmental allergies: Code(s): Z91.09 - Other allergy status, other than to drugs and biological substances Category: Medical (4) Vitamin D deficiency: Code(s): E55.9 - Vitamin D deficiency, unspecified Category: Medical (5) Lipid disorder: Code(s): E78.9 - Disorder of lipoprotein metabolism, unspecified Category: Medical (6) Depression, major, recurrent: Code(s): F33.9 - Major depressive disorder, recurrent, unspecified Category: Medical Qualifiers: Active/Remission status: in full remission Qualified Code(s): F33.42 - Major depressive disorder, recurrent, in full remission (7) Chronic GERD: Code(s): K21.9 - Gastro-esophageal reflux disease without esophagitis Category: Medical (8) Hammertoe of right foot: Code(s): M20.41 - Other hammer toe(s) (acquired), right foot Category: Medical (9) Moderate alcohol consumption: Code(s): Z78.9 - Other specified health status Category: Social Hx Plan - The patient is a 68-year-old female presenting for a routine physical examination and the management of multiple chronic conditions. - Hypertension is managed with amlodipine and atenolol. - GERD is treated with pantoprazole. - Urinary incontinence is treated with oxybutinine, while allergic rhinitis with Zyrtec. - Hyperlipidemia is managed with rosuvastatin. - She has recently undergone cataract surgery but experiences increased sunlight sensitivity.. - Experiences heightened anxiety, noticed with elevated pulse rates and occasional increased alcohol use. - Previous mammogram performed last year; however, no recent Pap smear due to personal choice. - Colonoscopy was normal in 2021, with the follow-up recommended in five years. - Kidney function has improved, noted with a filtration rate increase to 56. - Acknowledges increased alcohol use during holidays, impacting anxiety and balance. - Recently began B-complex vitamins for hair health. Health Maintenance - Mammogram performed last year; needs to schedule for this year. - Colonoscopy conducted on August 13, 2021, with normal findings; next in five years. - Discussed the impact of alcohol on balance and mental health; advised reduction. Medications - Amlodipine 10 mg for hypertension - Atenolol 100 mg for hypertension - Pantoprazole for GERD - Oxybutinine for urinary incontinence - Zyrtec for allergic rhinitis - Wellbutrin for major depressive disorder (not regular) - Simvastatin for hyperlipidemia - B-complex vitamins for hair health - Rosuvastatin 5 mg for hyperlipidemia Diagnostic results - Labs: - CBC in November with normal hemoglobin. - Metabolic profile in April showed improved kidney function, eGFR now 56. - Colonoscopy: Normal results on August 13, 2021, at [facility]. Review of Systems - Cardiovascular: Reports occasional palpitations; denies regular alcohol consumption influencing symptoms. - Gastrointestinal: Denies recent gastrointestinal symptoms. - Genitourinary: Denies changes in urinary incontinence status. - Dermatological: Reports usage of B-complex for hair health. - Ophthalmological: Reports increased sensitivity to sunlight post-cataract surgery. - General: No fever no chills - Neurological: No headaches no dizziness - Ear nose throat: No sore throat no hearing difficulty no ear pain - Endocrine: No polyuria polydipsia no heat intolerance - Genitourinary: No dysuria - Skin: No new complaints Physical Exam General: Cooperative, healthy appearing, comfortable, no acute distress Orientation: Patient oriented x3 Limitations: None Head: Normal to inspection Ears: Within normal limit visually Nose: Normal external nose present Face and sinus: Normal facial exam Eyes: Appearance normal, extraocular movement intact pupils reactive Neck: Normal visual inspection and supple Respiratory: Normal respiratory effort and able to speak in complete sentences. Clear to auscultation, no stridor Breast exam: Declined by the patient Cardiovascular: S1 and S2, pulse is very high at 124 GI: Normal to inspection. Soft to palpation and nontender Skin: Turgor normal, no acute findings Neuro: Patient oriented x3, motor sensory intact, balance off, tandem pass Extremities: Normal to inspection Patient Instructions - Schedule and attend mammogram for this year. - Follow up with colonoscopy in five years. - Continue existing medication regimen and report any concerns. - Limit alcohol consumption to reduce anxiety and improve balance. - Return in one year for routine physical - try to lose weight BMI is elevated at 30.1 Regular follow-up 3 months
== END 2024-04-28 15:36 | disposition home or self-care (01) ==
PROVIDERS: PCP Internal Medicine; Visit Provider Internal Medicine
DX: Z00.00 Encounter for general adult medical examination without abnormal findings (principal); F33.42 Major depressive disorder, recurrent, in full remission; I10 Essential (primary) hypertension; Z91.09 Other allergy status, other than to drugs and biological substances; E55.9 Vitamin D deficiency, unspecified; E78.9 Disorder of lipoprotein metabolism, unspecified; K21.9 Gastro-esophageal reflux disease without esophagitis; M20.41 Other hammer toe(s) (acquired), right foot; Z78.9 Other specified health status

== ENCOUNTER → 2024-04-28 15:01 | Outpatient (BNVA) | payer MEDICARE, SELFPAY | PROVIDERS: PCP Internal Medicine; Visit Provider Internal Medicine | DX: Z00.01 Encounter for general adult medical examination with abnormal findings (principal); I10 Essential (primary) hypertension; K21.9 Gastro-esophageal reflux disease without esophagitis; R32 Unspecified urinary incontinence; E78.5 Hyperlipidemia, unspecified; F41.9 Anxiety disorder, unspecified; Z78.9 Other specified health status; Z91.09 Other allergy status, other than to drugs and biological substances | CPT/HCPCS: 96127; 99212; 99397 ==

== ENCOUNTER 2024-08-04 13:01 | Outpatient (REF) | payer MEDICARE, SELFPAY ==
--- OUTSIDE RECORDS SUMMARY | 2024-08-04 15:28 | XMS_ITS | Patient Health Record ---
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 Role Phone Chuy HERNANDEZ, Asma Primary Care Provider Avi Lee Unavailable [phone] Allergies Allergen (clinical drug ingredient) Drug/Non Drug Allergy documented on EMR Reaction Allergy Type Onset Date Status Shellfish (FN) shrimp/shellfish (uncoded) Unknown Allergy Active Substance with sulfonamide structure and antibacterial mechanism of action (substance) Sulfa Antibiotics swelling Drug Allergy Active Reason For Referral No Information Medications Medication SIG (Take, Route, Frequency, Duration) Notes Start Date End Date Status Omeprazole 40 MG 1 capsule 30 minutes before morning meal Orally Once a day for 30 day(s) Active oxyBUTYnin Chloride ER 10 MG 1 tablet Orally Once a day for 30 day(s) Active amLODIPine Besylate 10 MG 1 tablet Orall y Once a day for 30 day(s) Active Atenolol 100 MG 1 tablet Orally Once a day for 30 day(s) Active Simvastatin 5 MG 1 tablet in the even ing Orally Once a day for 30 day(s) Active Immunizations Vaccine Route Administration Date Status Comme nts COVID-19 Moderna Vaccine Unknown 02/26/2021 Administered First Dose: 06/19/2020 Second Dose: 07/19/2020 Social History Tobacco Use: Social History Observation Description Date Details (start date - stop date) Never Smoker NA - NA Tobacco Use/Smoking Question Answer Notes Are you a: nonsmoker Additional Findings: Tobacco Non-User Cu rrent non-smoker, but past smoking history unknown Alcohol Screen Question Answer Notes Did you have a drink containing alcohol in the p ast year? Yes Points 0 Interpretation Negative Tobacco use other than smoking: Question Answer Notes Are you an other tobacco user? No Problems Problem Type SNOMED Code ICD Code Onset Dates Problem Status W/U Status Risk Notes Problem Acquired hammer toe of right foot ([id number] 105) Other hammer toe(s) (acquired), right foot (M20.41) Active confirmed Problem Acquired hammer toe of left foot ([id number] 103) Other hammer toe(s) (acquired), left foot (M20.42) Active confirmed Plan Of Treatment Pending Test Test Name Order Date X ray : Foot, left 3V 04/30/2021 X ray : Foot, right 3V 04/30/2021 Insurance Providers Payer Name Payer Address Payer Phone Subscriber Number Group Number Insured Name Patient Relationship to Insured Coverage Start Date Coverage End Date Medicare [employer] [address] [facility] [place] [address] [id number] Dana Scherer Self - patient is the insured [employer] [address] [place] [address] [phone] [id number] Dana cSherer Self - patient is the insured Medical (General) History Medical History History ICD Code Arthritis Cancer High blood pressure Joint implants/screws Surgical History Surgery Date(Month/Year) knee surgery 03/27/20 knee surgery 11/19/19
[2024-08-04 16:09] LABS: MANUAL DIFF FLAG NO
[2024-08-04 16:18] LABS: Basophils Absolute Auto 0.1 X10*3/uL (0.0-0.2); Basophils Percent Auto 0.6 % (0-2); Eosinophils Absolute Auto 0.1 X10*3/uL (0.0-0.4); Eosinophils Percent Auto 0.8 % (0-4); Hematocrit 37.4 % (37.0-47.0); Hemoglobin 12.4 g/dl (12.0-16.0); Imm Gran Abs Auto 0.03 X10*3/uL (0.00-0.03); Imm Gran Pct Auto 0.4 % (0.0-0.4); Lymphocytes Absolute Auto 2.3 X10*3/uL (1.2-4.9); Lymphocytes Percent Auto 29.6 % (20-40); Mean Corpuscular HGB Conc 33.2 g/dl (31.0-35.0); Mean Corpuscular Volume 93.5 fL (80.0-98.0); Mean Platelet Volume 10.2 fL (9.4-12.3); Monocytes Absolute Auto 0.7 X10*3/uL (0.1-1.2); Monocytes Percent Auto 8.4 % (2-11); Neutrophils Absolute Auto 4.6 x10*3/uL (2.0-8.3); Neutrophils Percent Auto 60.2 % (45-73); Platelet Count 338 X10*3/uL (160-400); Red Cell Distribution Width 14.5 % (11.0-16.0); White Blood Count 7.7 X10*3/uL (4.8-10.8)
[2024-08-04 16:36] LABS: Alanine Aminotransferase 15 U/L (0-31); Albumin Level 4.3 g/dL (3.5-5.0); Alkaline Phosphatase 100 U/L (39-117); Anion Gap 13 (12-20); Aspartate Amino Transferase 27 U/L (5-31); Bilirubin Total 0.5 mg/dL (0.0-1.0); Blood Urea Nitrogen 19 mg/dL (9-16); Calcium 9.6 mg/dL (8.4-10.2); Carbon Dioxide 27 mmol/L (22-29); Chloride 103 mmol/L (96-108); Cholesterol 235 mg/dL (<200); Estimated Glomerular Filt Rate 44; Glucose Fasting 101 mg/dL (60-99); HDL Cholesterol 98 mg/dL (>40); LDL Cholesterol Calculated 118 mg/dL (<100); Potassium 4.4 mmol/L (3.3-5.1); Sodium 139 mmol/L (135-145); Total Protein 7.4 g/dL (6.5-8.0); Triglycerides 95 mg/dL (<150)
== END 2024-08-04 13:02 | disposition home or self-care (01) ==
LOC: HO.HMGCLDS 13:01
PROVIDERS: PCP Internal Medicine; Visit Provider Internal Medicine
DX: I10 Essential (primary) hypertension (principal); E78.9 Disorder of lipoprotein metabolism, unspecified
CPT/HCPCS: 36415; 80053; 80061; 85025

== ENCOUNTER 2024-08-06 11:49 | Outpatient (AMB) | payer MEDICARE, SELFPAY ==
[2024-08-06 11:54] VITALS: BP 126/68; PULSE 84; O2SAT 96; BMI 29.3
--- NOTE | 2024-08-06 11:54 | A.OFFPC_ITS ---
Vital Signs 08/06/24 11:54 Height 5 ft 2 in Weight 160 lb 4 oz BMI 29.3 BP 126/68 Blood Pressure Location Lt brachial Position Sitting Pulse 84 Pulse Source Pulse Oximeter Pulse Oximetry (%) 96 Oxygen Delivery Method Room Air Intake Visit Reasons: 4 month f/u Allergies Sulfa (Sulfonamide Antibiotics) [Sulfa (Sulfonamides)] Allergy (Mild, Verified 08/06/24 11:54) FLUSHING/RASH lisinopril Adverse Reaction (Unknown, Verified 08/06/24 11:54) cough Medication List - Last Reconciled 08/06/24 by Cyndi Vera MD acyclovir 800 mg PO TID 7 days amlodipine 10 mg PO DAILY 90 days atenolol 100 mg PO DAILY 90 days bupropion HCl XL (Wellbutrin XL) 300 mg PO QAM 90 days cetirizine (Zyrtec) 10 mg PO ONCE 90 days fluticasone propionate 50 mcg/actuation 1 spray intranasal DAILY 30 days ketoconazole 2% 1 appl topical DAILY 3 days lactobacillus combination no.4 (Probiotic) 3,000 mmu cells PO DAILY multivitamin 1 tab PO DAILY oxybutynin chloride ER 10 mg PO DAILY 90 days pantoprazole 40 mg PO DAILY 90 days simvastatin 5 mg PO BEDTIME 90 days Tobacco use date assessed: 08/06/24 Fall risk assessment: No Falls in past year Last assessed Fall Risk: 08/06/24 Dental Screening Dental Screen Date: 08/06/24 Did you have a dental visit in the last 12 months?: Yes Did you have a dental problem in the last 6 months where you did not have access to dental care?: No Was dental information given to patient?: Patient has dentist HPI 4 month f/u HPI Details History - The patient is a 68-year-old female pr esenting for a regular follow-up evaluation. - Hypertension: Controlled with medicati on. Current blood pressure is 126/68 mmHg. - Partial Toe Amputation: Underwent ampu tation on June 23. Toe has been healing well. - Chronic Kidney Disease: Worsening kidn ey function noted, with GFR decreasing from 56 in April to 44 currently. - Depression: Managed with medication, n o specific depression symptoms were discussed in the visit. - Allergic Rhinitis: Managed with nasal spray; no acute symptoms discussed. - Overactive Bladder: Managed with oxybu tynin. - Gastroesophageal Reflux Disease (GERD) : Managed with pantoprazole. - Pre-diabetes: Fasting glucose level at 101; previous history not discussed as known. Medications - Amlodipine 10 mg for hypertension - Atenolol 100 mg for hypertension - Bupropion 300 mg for depression - Cetirizine for allergic rhinitis - Nasal spray for allergic rhinitis - Oxybutynin for overactive bladder - Pantoprazole for gastroesophageal refl ux disease Problem List - Hypertension - Depression - Allergic Rhinitis - Overactive Bladder - Gastroesophageal Reflux Disease (GERD) - Partial Toe Amputation - Pre-diabetes - Chronic Kidney Disease Diagnostic results - Labs: CBC normal, no anemia; Electroly hawa within normal range; Liver enzymes normal; LDL cholesterol at 118, LDL goal should be less than 100; Fasting blood glucose at 101 indicating pre-diabetes; GFR decreased to 44 indicating worsening kidney function. Patient Instructions - Increase water intake to help manage k idney function. - Maintain blood sugar levels through ap propriate dietary measures. - Continue current medications as prescr ibed. - Schedule follow-up blood tests as disc ussed. - Observe changes in toe healing and rep ort any concerns. - Monitor overall health and seek medica l care if any new symptoms arise. Review of Systems General: No fever no chills neurological: No headaches no dizziness ear nose throat: No sore throat no hearing difficulty no ear pain cardiovascular: No syncope, no chest pain, no palpitations gastrointestinal: No nausea vomiting or diarrhea endocrine: No polyuria polydipsia no heat intolerance genitourinary: No dysuria skin: No new complaints Physical Exam general: No acute distress HEENT: No acute findings neck: Supple respiratory system: Able to talk in full sentences, no audible wheeze no stridor cardiovascular: S1-S2 gastrointestinal: No pain extremities: Amputated toe, healing well [employer]: Alert awake oriented x3 motor sensory intact skin: Normal turgor PFSH Medical History Osteoarthritis of knees, bilateral Bladder disorder Depression, major, recurrent Lipid disorder Vitamin D deficiency Environmental allergies History of breast cancer Hypertension, essential Chronic GERD Surgical History No pertinent past surgical history Social History Housing: House Patient Tobacco Use Status: Former Tobacco user Tobacco use type: Cigarette Years Smoked: 50 years e-Cigarette/Vaping Use: Never Used service: No Current occupational status: retired 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 1. Little interest or pleasure in doing things: several days 2. Feeling down, depressed, or hopeless: not at all 3. Trouble falling or staying asleep, or sleeping too much: not at all 4. Feeling tired or having little energy: several days 5. Poor appetite or overeating: not at all 6. Feeling bad about yourself - or that you are a failure or have let yourself or your family down: not at all 7. Trouble concentrating on things, such as reading the newspaper or watching television: not at all 8. Moving or speaking so slowly that other people could have noticed. Or the opposite - being so fidgety or restless that you have been moving around a lot more than usual: not at all 9. Thoughts that you would be better off or of hurting yourself in some way: not at all Total score: 2 Depression Screening Interpretation: Negative Depression Screening Done: Yes 46921 - PHQ-9 Billing: Yes Source: Developed by Drs. Kristofer Christopher, Yoko Ricci, Kanu Cummins and colleagues, with an educational wes from [employer]. Thrive Questionnaire Date Thrive assessed: 08/06/24 I am a: Patient What is your living situation today?: I choose not to answer this question Within the past 12 months, did the food you bought not last and you didn't have the money to get more?: I choose not to answer this question Within the past 12 months, did you worry whether your food would run out before you got money to buy more?: I choose not to answer this question Do you have trouble paying for medicines?: I choose not to answer this question Do you have trouble getting transportation to medical appointments?: I choose not to answer this question Do you have trouble paying your heating and electricity bill?: I choose not to answer this question Do you have trouble taking care of your child, family member or friend?: I choose not to answer this question Do you have trouble with day-to-day activities such as bathing, preparing meals, shopping, managing finances, etc.?: I choose not to answer this question Are you currently unemployed and looking for a job?: I choose not to answer this question Are you interested in more education?: I choose not to answer this question Please select the resources that you would like help with: None Currently or been in a relationship where the following occur: I choose not to answer THRIVE Score: 0 AUDIT C Alcohol Use Questionnaire (AUDIT-C) 1. How often do you have a drink containing alcohol?: Never 3. How often do you have six or more drinks on one occasion?: Never Total Score: 0 Score Reviewed/Action Taken: Yes MAUEREN-7 AMB Questionnaire MAUREEN-7 Date MAUREEN - 7 assessed: 08/06/24 Feeling nervous, anxious, or on edge: 0 = Not at all Not being able to stop or control worryin = Not at all Worrying too much about different things: 0 = Not at all Trouble relaxin = Not at all Being so restless that it is hard to sit still: 0 = Not at all Becoming easily annoyed or irritable: 0 = Not at all Feeling afraid as if something awful might happen: 0 = Not at all Total MAUREEN-7 score (0-4 normal; 5-9 mild; 10-14 moderate; 15-21 severe): 0 Source: Developed by Drs. Kristofer Christopher, Yoko Ricci, Kanu Cummins and colleagues, with an educational wes from [employer]. MAUREEN-7 Assessment Billing MAUREEN-7 Assessment Tool: MAUREEN-7 Assessment 28985 Physical exam (Primary Care) Vital Signs: Last Vital Signs Pulse 84 08/06/24 11:54 BP 126/68 08/06/24 11:54 Pulse Ox 96 08/06/24 11:54 Oxygen Delivery Method Room Air 08/06/24 11:54 BMI result Body Mass Index 29.3 Tobacco/Smoking Status: Tobacco use Status Tobacco use date assessed 08/06/24 08/06/24 12:01 Patient Tobacco Use Status Former Tobacco user 08/06/24 12:01 Tobacco use type Cigarette 08/06/24 12:01 e-Cigarette/Vaping Use Never Used 08/06/24 12:01 PHQ-9: PHQ-9 Score PHQ-9: Total score 2 08/06/24 12:12 Depression Screening Interpretation: Negative Thrive Assessment: Date of Thrive Assessment Date Thrive assessed 08/06/24 08/06/24 12:01 Currently or been in a relationship where the following occur: I choose not to answer Coding Level of Care Code Est Pt Level 4 (10478) Complex EM visit Add On G2211 Diagnoses Hypertension, essential I10 Nephropathy N28.9 Lipid disorder E78.9 Recurrent major depressive disorder, in full remission F33.42 Active/Remission status: in full remission Chronic GERD K21.9 Environmental allergies Z91.09 Pre-diabetes R73.03 Additional Codes MAUREEN-7 Assessment Billing - MAUREEN-7 Assessment Tool: MAUREEN-7 Assessment 35631 ([id number]) PHQ-9 - 54624 - PHQ-9 Billing: Yes ([id number]) Assessment & Plan Assessment & Plan (1) Hypertension, essential: Code(s): I10 - Essential (primary) hypertension Category: Medical (2) Nephropathy: Code(s): N28.9 - Disorder of kidney and ureter, unspecified Category: Medical (3) Lipid disorder: Code(s): E78.9 - Disorder of lipoprotein metabolism, unspecified Category: Medical (4) Depression, major, recurrent: Code(s): F33.9 - Major depressive disorder, recurrent, unspecified Category: Medical Qualifiers: Active/Remission status: in full remission Qualified Code(s): F33.42 - Major depressive disorder, recurrent, in full remission (5) Chronic GERD: Code(s): K21.9 - Gastro-esophageal reflux disease without esophagitis Category: Medical (6) Environmental allergies: Code(s): Z91.09 - Other allergy status, other than to drugs and biological substances Category: Medical (7) Pre-diabetes: Code(s): R73.03 - Prediabetes Category: Medical Plan History - The patient is a 68-year-old female presenting for a regular follow-up evaluation. - Hypertension: Controlled with medication. Current blood pressure is 126/68 mmHg. - Partial Toe Amputation: Underwent amputation on June 23. Toe has been healing well. - Chronic Kidney Disease: Worsening kidney function noted, with GFR decreasing from 56 in April to 44 currently. - Depression: Managed with medication, no specific depression symptoms were discussed in the visit. - Allergic Rhinitis: Managed with nasal spray; no acute symptoms discussed. - Overactive Bladder: Managed with oxybutynin. - Gastroesophageal Reflux Disease (GERD): Managed with pantoprazole. - Pre-diabetes: Fasting glucose level at 101; previous history not discussed as known. Medications - Amlodipine 10 mg for hypertension - Atenolol 100 mg for hypertension - Bupropion 300 mg for depression - Cetirizine for allergic rhinitis - Nasal spray for allergic rhinitis - Oxybutynin for overactive bladder - Pantoprazole for gastroesophageal reflux disease Problem List - Hypertension - Depression - Allergic Rhinitis - Overactive Bladder - Gastroesophageal Reflux Disease (GERD) - Partial Toe Amputation - Pre-diabetes - Chronic Kidney Disease Diagnostic results - Labs: CBC normal, no anemia; Electrolytes within normal range; Liver enzymes normal; LDL cholesterol at 118, LDL goal should be less than 100; Fasting blood glucose at 101 indicating pre-diabetes; GFR decreased to 44 indicating worsening kidney function. Patient Instructions - Increase water intake to help manage kidney function. - Maintain blood sugar levels through appropriate dietary measures. - Continue current medications as prescribed. - Schedule follow-up blood tests as discussed. - Observe changes in toe healing and report any concerns. - Monitor overall health and seek medical care if any new symptoms arise. Orders: Orders Comprehensive Met. Panel Today E78.9 - Disorder of lipoprotein metabolism, unspecified, F33.42 - Major depressive disorder, recurrent, in full remission, I10 - Essential (primary) hypertension, K21.9 - Gastro-esophageal reflux disease without esophagitis, N28.9 - Disorder of kidney and ureter, unspecified, Z91.09 - Other allergy status, other than to drugs and biological substances
--- OUTSIDE RECORDS SUMMARY | 2024-08-06 12:48 | XMS_ITS | Patient Health Record ---
Author Organization [facility] Address [address] [address] Care Team Providers Care Billing Control Clerk Name Role Phone Chuy HERNANDEZ, Asma Primary Care Provider Avi Lee Unavailable [phone] Allergies Allergen (clinical drug ingredient) Drug/Non Drug [...] Problem Acquired hammer toe of right foot ([id number] 105) Other hammer toe(s) (acquired), right foot (M20.41) Active confirmed Problem Acquired hammer toe of left foot ([id number] 103) Other hammer toe(s) (acquired), left foot [...] [employer] [address] [place] [address] [id number] Dana Scherer Self - patient is the insured [employer] [address] [place] [address] [phone] [id number] Dana Scherer Self - patient is the insured Medical (General) History Medical History History ICD Code Arthritis Cancer High blood pressure Joint implants/screws Surgical History Surgery Date(Month/Year) knee surgery 03/27/20 knee surgery 11/19/19
== END 2024-08-06 12:12 | disposition home or self-care (01) ==
LOC: HO.HMCC 11:50
PROVIDERS: PCP Internal Medicine; Visit Provider Internal Medicine
DX: I10 Essential (primary) hypertension (principal); N28.9 Disorder of kidney and ureter, unspecified; E78.9 Disorder of lipoprotein metabolism, unspecified; F33.42 Major depressive disorder, recurrent, in full remission; K21.9 Gastro-esophageal reflux disease without esophagitis; Z91.09 Other allergy status, other than to drugs and biological substances; R73.03 Prediabetes

== ENCOUNTER → 2024-08-06 11:49 | Outpatient (BNVA) | payer MEDICARE, SELFPAY | PROVIDERS: PCP Internal Medicine; Visit Provider Internal Medicine | DX: I12.9 Hypertensive chronic kidney disease with stage 1 through stage 4 chronic kidney disease, or unspecified chronic kidney disease (principal); N18.9 Chronic kidney disease, unspecified; J30.9 Allergic rhinitis, unspecified; K21.9 Gastro-esophageal reflux disease without esophagitis; N32.81 Overactive bladder; R73.03 Prediabetes; E78.9 Disorder of lipoprotein metabolism, unspecified; F33.42 Major depressive disorder, recurrent, in full remission; Z91.09 Other allergy status, other than to drugs and biological substances; Z89.429 Acquired absence of other toe(s), unspecified side | CPT/HCPCS: 96127; 99212 ==

== ENCOUNTER 2024-10-15 13:26 | Outpatient (AMB) | payer MEDICARE, SELFPAY ==
[2024-10-15 13:45] VITALS: BP 123/74; PULSE 68; TEMP 36.7; O2SAT 97; BMI 29.3
--- NOTE | 2024-10-15 13:45 | AM.OFFWIN_ITS ---
Intake Vital Signs 10/15/24 13:45 Height 5 ft 1.5 in Weight 157 lb 8 oz BMI 29.3 BP 123/74 Blood Pressure Location Lt brachial Position Sitting Pulse 68 Pulse Source Pulse Oximeter Temp 98.0 F Temp Source Oral Pulse Oximetry (%) 97 Oxygen Delivery Method Room Air Intake Visit Reasons: EP Severe back pain Intake Note: Patient present severe back pain times 3 days. 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 - The back pain began three weeks ago, w orsening significantly over the past three days. - Pain is localized to the mid back and sometimes on the side, with no leg radiation. - The patient has been using ice, heat, and ibuprofen 800 mg twice daily, which provides some relief. - No history of kidney stones, urinary c hanges, or blood in urine. - No weakness, numbness, or tingling in the legs, and no loss of bladder or bowel control. - The patient has gastroesophageal reflu x disease managed with pantoprazole. Physical Exam General: cooperative, healthy appearing and comfortable, patient oriented x3 Head: Yes normal to inspection and Yes normocephalic General nose exam: Normal external nose present Face and sinus: Yes normal facial exam Effort & Inspection: normal respiratory effort and able to speak in complete sentences Back/spine: no CVA tenderness bilaterally cervical, thoracic and lumbar spine normal to inspection cervical ROM normal, thoracic ROM normal, lumbar ROM normal no Cervical, thoracic or lumbar spine tenderness TTP on bilateral thoracic areas [facility] Medical History Osteoarthritis of knees, bilateral Bladder disorder Depression, major, recurrent Lipid disorder Vitamin D deficiency Environmental allergies History of breast cancer Hypertension, essential Chronic GERD Surgical History No pertinent past surgical history Social History Housing: House Patient Tobacco Use Status: Former Tobacco user Tobacco use type: Cigarette Years Smoked: 50 years e-Cigarette/Vaping Use: Never Used Patient : No service: No Current occupational status: retired 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 Cognitive needs: No Hearing needs: No Vision needs: Yes Review of Systems Const All systems reviewed & are unremarkable except as noted in HPI and below Physical Exam Vital Signs: Last Vital Signs Temp 98.0 F 10/15/24 13:45 Pulse 68 10/15/24 13:45 BP 123/74 10/15/24 13:45 Pulse Ox 97 10/15/24 13:45 Oxygen Delivery Method Room Air 10/15/24 13:45 BMI result Body Mass Index 29.3 Assessment & Plan Assessment & Plan (1) Low back strain: Code(s): S39.012A - Strain of muscle, fascia and tendon of lower back, initial encounter Qualifiers: Encounter type: initial encounter Qualified Code(s): S39.012A - Strain of muscle, fascia and tendon of lower back, initial encounter Plan: Patient was informed and verbally consented to the use of an ambient scribe for clinic note documentation during this visit. 1. Acute Low Back Pain - Prescribed meloxicam for weekend use, with a plan to revert to ibuprofen if effective. - Cyclobenzaprine prescribed for muscle relaxation, advised for nighttime use due to sedative effects. - Recommended heat or ice application and stretching exercises. - Follow-up advised if symptoms persist or worsen, with options for x-ray or physical therapy. Medications: New cyclobenzaprine 5 mg PO Q8H PRN 20 tabs 0RF Muscle Spasm meloxicam 15 mg PO DAILY PRN 15 tabs 0RF pain, moderate Coding Level of Care Code Est Pt Level 3 (80216) Diagnoses Strain of lumbar region, initial encounter S39.012A Encounter type: initial encounter
== END 2024-10-15 14:28 | disposition home or self-care (01) ==
PROVIDERS: PCP Internal Medicine; Visit Provider Physician Assistant
DX: S39.012A Strain of muscle, fascia and tendon of lower back, initial encounter (principal)

== ENCOUNTER → 2024-10-15 13:26 | Outpatient (BNVA) | payer MEDICARE, SELFPAY | PROVIDERS: PCP Internal Medicine; Visit Provider Physician Assistant | DX: S39.012A Strain of muscle, fascia and tendon of lower back, initial encounter (principal) | CPT/HCPCS: 99212 ==

== ENCOUNTER 2024-11-12 11:09 | Outpatient (REF) | payer MEDICARE, SELFPAY ==
--- NOTE | ~2024-11-12 | XR_ITS ---
EXAMINATION: XR ABDOMEN KUB CLINICAL INDICATION: R10.9 - Unspecified abdominal pain COMPARISON: None available. TECHNIQUE: AP view of the abdomen. FINDINGS: There is moderate stool in the right, transverse, and splenic flexure of the colon. There is scattered small bowel gas. Hip joints demonstrate mild to moderate axial narrowing, greater on the left. SI joints demonstrate minimal marginal osteophyte formation. XR/XR KUB IMPRESSION: Mild to moderate stool burden. Mild to moderate degenerative joint space narrowing in the hips, greater on the left Mild to moderate degenerative changes bilateral SI joints Electronically signed by: Shukri Moise MD 11/12/2024 11:49 AM EDT
== END 2024-11-12 11:10 | disposition home or self-care (01) ==
LOC: HO.HMGCX 11:09
PROVIDERS: PCP Internal Medicine; Visit Provider Physician Assistant
DX: R10.9 Unspecified abdominal pain (principal)
CPT/HCPCS: 74018; 99212

== ENCOUNTER 2024-11-12 11:09 | Outpatient (AMB) | payer MEDICARE, SELFPAY ==
[2024-11-12 11:14] VITALS: BP 116/64; PULSE 75; TEMP 37; O2SAT 97; BMI 29.0
--- NOTE | 2024-11-12 11:14 | AM.OFFWIN_ITS ---
Intake Vital Signs 11/12/24 11:14 Height 5 ft 1.5 in Weight 156 lb BMI 29.0 BP 116/64 Blood Pressure Location Lt brachial Position Sitting Pulse 75 Pulse Source Pulse Oximeter Temp 98.6 F Temp Source Oral Pulse Oximetry (%) 97 Oxygen Delivery Method Room Air Intake Visit Reasons: EP back pain Intake Note: presents with lower back and bilateral flank pain Patient Tobacco Use Status: Former Tobacco user Allergies Sulfa (Sulfonamide Antibiotics) (Sulfa (Sulfonamides)) Allergy (Mild, Verified 11/12/24 11:16) FLUSHING/RASH lisinopril Adverse Reaction (Unknown, Verified 11/12/24 11:16) cough Do you need a note to return to daycare/school/sports/work: No HPI HPI Comments History of Present Illness Details History - The patient is a 68-year-old female pr esenting with low back pain. - Previously treated with meloxicam and cyclobenzaprine without resolution of symptoms. - Pain is worse in the morning, improves throughout the day, and is aggravated by lifting. - Denies back injury, urinary changes, o r bowel control loss. - Constipation was present but has resol sheng. - Occasional use of ibuprofen noted, lew re of its risks. - No history of kidney stones. Physical Exam General: Cooperative, healthy appearing, comfortable, no acute distress and well developed Orientation: Patient oriented x3 Limitations: No limitations Head: Normal to inspection Ears: Hearing grossly normal bilaterally Nose: Normal External nose present Face and sinus: Normal facial exam Mouth: normal, moist oral mucosa Eyes: Appearance normal, both eyes and all related structures Neck: Normal visual inspection and Yes full ROM Respiratory: Normal respiratory effort and able to speak in complete sentences. Skin: no rashes or lesions noted Neuro: Patient oriented x3, gait normal Back/spine: no TTP cervical, thoracic or lumbar pain. 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 Cognitive needs: No Hearing needs: No Vision needs: Yes Review of Systems Const All systems reviewed & are unremarkable except as noted in HPI and below Physical Exam Vital Signs: Last Vital Signs Temp 98.6 F 11/12/24 11:14 Pulse 75 11/12/24 11:14 BP 116/64 11/12/24 11:14 Pulse Ox 97 11/12/24 11:14 Oxygen Delivery Method Room Air 11/12/24 11:14 BMI result Body Mass Index 29.0 Assessment & Plan Assessment & Plan (1) Bilateral flank pain: Code(s): R10.9 - Unspecified abdominal pain Plan: Plan Patient was informed and verbally consented to the use of an ambient scribe for clinic note documentation during this visit Low Back Pain - Initiate prednisone for inflammation control. - KUB x-ray to evaluate for kidney stones vs constipation. - Adjust plan based on x-ray findings. Orders: Orders XR KUB Today R10.9 - Unspecified abdominal pain Medications: New prednisone 40 mg (2 x 20 mg) PO QAM 10 tabs 0RF Coding Level of Care Code Est Pt Level 3 (86279) Diagnoses Bilateral flank pain R10.9
--- OUTSIDE RECORDS SUMMARY | 2024-11-12 11:16 | XMS_ITS | Encounter Summary ---
Author Organization [facility] Address [address] [place] [id number] Phone Care Team Providers Care Canine Service Teacher Name Role Phone Cyndi Vera MD Primary Care Provider [phone] Encounter Details Date Type Department Care Team (Late st Contact Info) Description 02/25/2020 Ancillary Orders [address] [phone] Kimberly Benites PA-C [address] [place] [address] Orthopedics & Sports Medicine, [facility] [address] [email or web address] Right knee pain, unspecified chronicity Social History Tobacco Use Types Packs/Day Years Used Date Smoking Tobacco: Former Cigarettes Q uit: 05/19/2019 Smokeless Tobacco: Never Comments:smoking since age [age] Alcohol Use Standard Drinks/Week Comments Yes 0 (1 standard drink = 0.6 oz pur e alcohol) socially Comments No Sex and Gender Information Value Date Recorded Sex Assigned at Not on file Legal Sex Female 9:30 AM EDT Gender Identity Not on file Sexual Orientation Not on file documented as of this encounter Plan of Treatment Not on file documented as of this encounter Results * XR KNEE 1-2 VIEWS (RIGHT) (03/03/2020 12:11 PM EST) Narrative SYSTEMGENERATED, DOCUMENTATION - 03/03/2020 12:11 PM EST This image report has been auto-finalized and has not been read by a Radiologist. Interpretation has been included in the provider encounter note for this date of service. Kimberly Benites PA-C IMG XR LOWER EXTREMITY Fin al Result documented in this encounter Visit Diagnoses Diagnosis Right knee pain, unspecified chronicity Right knee pain, unspecified chronicity documented in this encounter Care Teams Canine Service Teacher Relationship Specialty Start Date End Date Cyndi Vera MD [facility] [place] [address] PCP - General Internal Medicine 06/30/18 documented as of this encounter Additional Source Comments The information contained in this document represents components of the legal health record. It is not the complete legal health record.[facility]
--- OUTSIDE RECORDS SUMMARY | 2024-11-12 11:16 | XMS_ITS | Patient Health Record ---
Author Organization [facility] Address [address] [place] [address] Care Team Providers Care Anthropologist Name Role Phone Chuy HERNANDEZ, Asma Primary Care Provider Avi Lee Unavailable [phone] Allergies Allergen (clinical drug ingredient) Drug/Non Drug [...] minutes before morning meal Orally Once a day; Duration: 30 day(s) Active oxyBUTYnin Chloride ER 10 MG 1 tablet Orally Once a day; Duration: 30 day(s) Active amLODIPine Besylate 10 MG 1 tablet Orall y Once a day; Duration: 30 day(s) Active Atenolol 100 MG 1 tablet Orally Once a day; Duration: 30 day(s) Active Simvastatin 5 MG 1 tablet in the even ing Orally Once a day; Duration: 30 day(s) Active Immunizations Vaccine Route Administration [...] Problem Acquired hammer toe of right foot ([id number] 105) Other hammer toe(s) (acquired), right foot (M20.41) Active confirmed Problem Acquired hammer toe of left foot ([id number] 103) Other hammer toe(s) (acquired), left foot [...] [employer] [address] [place] [address] [id number] Dana Scherer Self - patient is the insured [employer] [facility] [address] [place] [address] [phone] [id number] Dana Scherer Self - patient is the insured Medical (General) History Medical History History ICD Code Arthritis Cancer High blood pressure Joint implants/screws Surgical History Surgery Date(Month/Year) knee surgery 03/27/20 knee surgery 11/19/19
== END 2024-11-12 11:40 | disposition home or self-care (01) ==
PROVIDERS: PCP Internal Medicine; Visit Provider Physician Assistant
DX: R10.9 Unspecified abdominal pain (principal)

== ENCOUNTER → 2024-11-12 11:37 | Outpatient (BNV) | payer MEDICARE, SELFPAY | PROVIDERS: PCP Internal Medicine; Visit Provider Radiology Diagnostic Radiology | DX: R10.9 Unspecified abdominal pain (principal) | CPT/HCPCS: 74018 ==

== ENCOUNTER 2024-12-08 12:55 | Outpatient (AMB) | payer MEDICARE, SELFPAY ==
[2024-12-08 12:58] VITALS: BP 130/70; PULSE 70; O2SAT 100; BMI 29.0
--- NOTE | 2024-12-08 12:58 | MHC.PC.OV ---
Vital Signs 12/08/24 12:58 Height 5 ft 1.5 in Weight 156 lb BMI 29.0 BP 130/70 Blood Pressure Location Lt brachial Position Sitting Pulse 70 Pulse Source Pulse Oximeter Pulse Oximetry (%) 100 Intake Visit Reasons: 4 months f/up Allergies Sulfa (Sulfonamide Antibiotics) (Sulfa (Sulfonamides)) Allergy (Mild, Verified 12/08/24 12:59) FLUSHING/RASH lisinopril Adverse Reaction (Unknown, Verified 12/08/24 12:59) cough Medication List - Last Reconciled 12/08/24 by Cyndi Vera MD amlodipine 10 mg PO DAILY 90 days atenolol 100 mg PO DAILY 90 days bupropion HCl XL (Wellbutrin XL) 300 mg PO QAM 90 days cetirizine (Zyrtec) 10 mg PO ONCE PRN fluticasone propionate 50 mcg/actuation 1 spray intranasal DAILY PRN ketoconazole 2% 1 appl topical DAILY 3 days lactobacillus combination no.4 (Probiotic) 3,000 mmu cells PO DAILY multivitamin 1 tab PO DAILY oxybutynin chloride ER 10 mg PO DAILY 90 days pantoprazole 40 mg PO DAILY 90 days simvastatin 5 mg PO BEDTIME 90 days Tobacco use date assessed: 08/06/24 Fall risk assessment: No Falls in past year Last assessed Fall Risk: 12/08/24 Dental Screening Dental Screen Date: 08/06/24 HPI 4 months f/up HPI Details Longitudinal care follow-up History The patient is a 69-year-old female presenting with follow-up for hypertension management and evaluation of hip and back pain symptoms. Hip and back pain:. - Pain persisted for three weeks, leading to another healthcare visit. - Imaging studies, specifically a KUB X-ray, were performed, revealing mild to moderate constipation and moderate degenerative changes in the hip joints, with more severe impact on the left side. - Arthritic changes were noted in the sacroiliac joints, correlating with the patient's symptomatology. - History includes a knee replacement surgery, indicating previous arthritic issues. - Patient has received cortisone shots for arthritis in the thumbs previously. - Pain in the hip is exacerbated by certain movements, impacting daily activities. Patient is already established with orthopedic Hypertension: - No new acute events related to hypertension were reported. - Previous blood pressure recordings have been stable, with current reading at 130/70. Compromised kidney function: - Past lab results indicated a reduced Glomerular Filtration Rate (GFR) in the 40s indicating chronic kidney disease. - Creatinine levels remain stable, and no acute changes reported. Medical History: - Essential Hypertension - Arthritis with previous knee replacement - Compromised kidney function with GFR in 40s - History of mild to moderate constipation - Reports of arthritic changes in hips and sacroiliac joints Surgical History: - Knee replacement (date not specified in the conversation) Medications: - Amlodipine - Atenolol - Wellbutrin (Bupropion) - Citerizine - Flonase (Fluticasone) - Oxybutynin - Pantoprazole - Simvastatin Social History: - The patient participates in activities involving visits to food pantries. - Indicates enjoyment of social activities such as visiting hairdressers and feeding birds. 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 - Consider orthopedic evaluation for hip arthritis. - Follow dietary guidelines to manage constipation. - Monitor blood pressure regularly. - Maintain follow-up appointments and complete labs as scheduled. - Discuss pain management strategies, including possible cortisone injections for hip pain, with orthopedic specialists. Follow-up April with physical exam appointment Review of Systems General: No fever no chills neurological: No headaches no dizziness ear nose throat: No sore throat no hearing difficulty no ear pain cardiovascular: No syncope, no chest pain, no palpitations gastrointestinal: No nausea vomiting or diarrhea endocrine: No polyuria polydipsia no heat intolerance genitourinary: No dysuria skin: No new complaints Physical Exam general: No acute distress HEENT: No acute findings neck: Supple respiratory system: Able to talk in full sentences, no audible wheeze no stridor cardiovascular: S1-S2 RRR gastrointestinal: No pain extremities: No new findings except arthritic changes in hands Back no pain with percussion RN NEW GRAD: Alert awake oriented x3 motor sensory intact skin: Normal turgor, PFSH Medical History Osteoarthritis of knees, bilateral Bladder disorder Depression, major, recurrent Lipid disorder Vitamin D deficiency Environmental allergies History of breast cancer Hypertension, essential Chronic GERD Surgical History No pertinent past surgical history Social History Housing: House Patient Tobacco Use Status: Former Tobacco user Tobacco use type: Cigarette Years Smoked: 50 years e-Cigarette/Vaping Use: Never Used service: No Current occupational status: retired 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 Cognitive needs: No Hearing needs: No Vision needs: Yes Questionnaire Thrive Questionnaire Date Thrive assessed: 04/28/24 I am a: Patient What is your living situation today?: I choose not to answer this question Within the past 12 months, did the food you bought not last and you didn't have the money to get more?: I choose not to answer this question Within the past 12 months, did you worry whether your food would run out before you got money to buy more?: I choose not to answer this question Do you have trouble paying for medicines?: I choose not to answer this question Do you have trouble getting transportation to medical appointments?: I choose not to answer this question Do you have trouble paying your heating and electricity bill?: I choose not to answer this question Do you have trouble taking care of your child, family member or friend?: I choose not to answer this question Do you have trouble with day-to-day activities such as bathing, preparing meals, shopping, managing finances, etc.?: I choose not to answer this question Are you currently unemployed and looking for a job?: I choose not to answer this question Are you interested in more education?: I choose not to answer this question Please select the resources that you would like help with: None Currently or been in a relationship where the following occur: I choose not to answer THRIVE Score: 0 MAUREEN-7 AMB Questionnaire MAUREEN-7 Date MAUREEN - 7 assessed: 08/06/24 Source: Developed by Drs. Kristofer Christopher, Yoko Ricci, Kanu Cummins and colleagues, with an educational wes from [employer]. Physical exam (Primary Care) Vital Signs: Last Vital Signs Pulse 70 12/08/24 12:58 BP 130/70 12/08/24 12:58 Pulse Ox 100 12/08/24 12:58 BMI result Body Mass Index 29.0 Tobacco/Smoking Status: Tobacco use Status Tobacco use date assessed 08/06/24 12/08/24 12:58 Patient Tobacco Use Status Former Tobacco user 12/08/24 12:58 Tobacco use type Cigarette 12/08/24 12:58 e-Cigarette/Vaping Use Never Used 12/08/24 12:58 Thrive Assessment: Date of Thrive Assessment Date Thrive assessed 04/28/24 12/08/24 12:58 Currently or been in a relationship where the following occur: I choose not to answer Coding Level of Care Code Est Pt Level 4 (88407) Complex EM visit Add On G2211 Diagnoses Hypertension, essential I10 Nephropathy N28.9 Lipid disorder E78.9 Recurrent major depressive disorder, in full remission F33.42 Active/Remission status: in full remission Chronic GERD K21.9 Environmental allergies Z91.09 Pre-diabetes R73.03 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 Primary osteoarthritis of both hips M16.0 Osteoarthritis type: primary Status post knee replacement, unspecified laterality Z96.659 Laterality: unspecified laterality Assessment & Plan Assessment & Plan (1) Hypertension, essential: Code(s): I10 - Essential (primary) hypertension Category: Medical (2) Nephropathy: Code(s): N28.9 - Disorder of kidney and ureter, unspecified Category: Medical (3) Lipid disorder: Code(s): E78.9 - Disorder of lipoprotein metabolism, unspecified Category: Medical (4) Depression, major, recurrent: Code(s): F33.9 - Major depressive disorder, recurrent, unspecified Category: Medical Qualifiers: Active/Remission status: in full remission Qualified Code(s): F33.42 - Major depressive disorder, recurrent, in full remission (5) Chronic GERD: Code(s): K21.9 - Gastro-esophageal reflux disease without esophagitis Category: Medical (6) Environmental allergies: Code(s): Z91.09 - Other allergy status, other than to drugs and biological substances Category: Medical (7) Pre-diabetes: Code(s): R73.03 - Prediabetes Category: Medical (8) Degenerative joint disease of sacroiliac joint: Code(s): M46.1 - Sacroiliitis, not elsewhere classified Category: Medical (9) Osteoarthritis, hip, bilateral: Code(s): M16.0 - Bilateral primary osteoarthritis of hip Category: Medical Qualifiers: Osteoarthritis type: primary Qualified Code(s): M16.0 - Bilateral primary osteoarthritis of hip (10) Status post knee replacement: Code(s): Z96.659 - Presence of unspecified artificial knee joint Category: Surgical Qualifiers: Laterality: unspecified laterality Qualified Code(s): Z96.659 - Presence of unspecified artificial knee joint Plan Longitudinal care follow-up History The patient is a 69-year-old female presenting with follow-up for hypertension management and evaluation of hip and back pain symptoms. Hip and back pain:. - Pain persisted for three weeks, leading to another healthcare visit. - Imaging studies, specifically a KUB X-ray, were performed, revealing mild to moderate constipation and moderate degenerative changes in the hip joints, with more severe impact on the left side. - Arthritic changes were noted in the sacroiliac joints, correlating with the patient's symptomatology. - History includes a knee replacement surgery, indicating previous arthritic issues. - Patient has received cortisone shots for arthritis in the thumbs previously. - Pain in the hip is exacerbated by certain movements, impacting daily activities. Patient is already established with orthopedic Hypertension: - No new acute events related to hypertension were reported. - Previous blood pressure recordings have been stable, with current reading at 130/70. Compromised kidney function: - Past lab results indicated a reduced Glomerular Filtration Rate (GFR) in the 40s indicating chronic kidney disease. - Creatinine levels remain stable, and no acute changes reported. Medical History: - Essential Hypertension - Arthritis with previous knee replacement - Compromised kidney function with GFR in 40s - History of mild to moderate constipation - Reports of arthritic changes in hips and sacroiliac joints Surgical History: - Knee replacement (date not specified in the conversation) Medications: - Amlodipine - Atenolol - Wellbutrin (Bupropion) - Citerizine - Flonase (Fluticasone) - Oxybutynin - Pantoprazole - Simvastatin Social History: - The patient participates in activities involving visits to food pantries. - Indicates enjoyment of social activities such as visiting hairdressers and feeding birds. 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 - Consider orthopedic evaluation for hip arthritis. - Follow dietary guidelines to manage constipation. - Monitor blood pressure regularly. - Maintain follow-up appointments and complete labs as scheduled. - Discuss pain management strategies, including possible cortisone injections for hip pain, with orthopedic specialists. Follow-up April with physical exam appointment
--- OUTSIDE RECORDS SUMMARY | 2024-12-08 13:46 | XMS_ITS | Encounter Summary ---
Author Organization [facility] Address [address] [place] [phone] Phone Care Team Providers Care Sterile Process Tech Name Role Phone Cyndi Vera MD Primary Care Provider [phone] Encounter Details Date Type Department Care Team (Late st Contact Info) Description 02/25/2020 Ancillary Orders [address] [id number] Kimberly Benites PA-C [address] [place] [address] Orthopedics & Sports Medicine, [facility] [place] [address] [email or web address] Right knee pain, unspecified chronicity Social History [...] chronicity documented in this encounter Care Teams Sterile Process Tech Relationship Specialty Start Date End Date Cyndi Vera MD [facility] [place] [address] PCP - General Internal Medicine 06/30/18 documented as of this encounter Additional Source Comments The information contained in this document represents components of the legal health record. It is not the complete legal health record.[facility]
--- OUTSIDE RECORDS SUMMARY | 2024-12-08 13:47 | XMS_ITS | Patient Health Record ---
Author Organization [facility] Address [address] [facility] [place] [address] Care Team Providers Care Preschool Assistant Teacher Name Role Phone Chuy HERNANDEZ, Asma Primary Care Provider Avi Lee Unavailable [phone] Allergies Allergen (clinical drug ingredient) Drug/Non Drug [...] Problem Acquired hammer toe of right foot ([id number] 105) Other hammer toe(s) (acquired), right foot (M20.41) Active confirmed Problem Other hammer toe(s) (acquired), left foot (M20.42) [...] [employer] [address] [place] [address] [id number] Dana Scherer Self - patient is the insured [employer] [address] [place] [address] [phone] [id number] Dana Scherer Self - patient is the insured Medical (General) History Medical History History ICD Code Arthritis Cancer High blood pressure Joint implants/screws Surgical History Surgery Date(Month/Year) knee surgery 03/27/20 knee surgery 11/19/19
== END 2024-12-08 15:18 | disposition home or self-care (01) ==
LOC: HO.HMCC 12:56
PROVIDERS: PCP Internal Medicine; Visit Provider Internal Medicine
DX: I10 Essential (primary) hypertension (principal); N28.9 Disorder of kidney and ureter, unspecified; E78.9 Disorder of lipoprotein metabolism, unspecified; F33.42 Major depressive disorder, recurrent, in full remission; K21.9 Gastro-esophageal reflux disease without esophagitis; Z91.09 Other allergy status, other than to drugs and biological substances; R73.03 Prediabetes; M46.1 Sacroiliitis, not elsewhere classified; M16.0 Bilateral primary osteoarthritis of hip; Z96.659 Presence of unspecified artificial knee joint

== ENCOUNTER → 2024-12-08 12:55 | Outpatient (BNVA) | payer MEDICARE, SELFPAY | PROVIDERS: PCP Internal Medicine; Visit Provider Internal Medicine | DX: I10 Essential (primary) hypertension (principal); E78.9 Disorder of lipoprotein metabolism, unspecified; F33.42 Major depressive disorder, recurrent, in full remission; K21.9 Gastro-esophageal reflux disease without esophagitis; R73.03 Prediabetes; M25.559 Pain in unspecified hip; M54.9 Dorsalgia, unspecified; Z91.09 Other allergy status, other than to drugs and biological substances | CPT/HCPCS: 99212 ==